=== PATIENT | female | born 1950 | race American Indian/Alaskan Native ===

== ENCOUNTER 2019-06-07 13:07 | Observation (INO) | payer MEDICARE ==
--- NOTE | 2019-06-07 13:34 | Cat Scan Report ---
CT head/brain wo con INDICATION: neuro deficits <6hrs or sx present upon awakening. TECHNIQUE: Routine CT head without contrast. All CT scans at this location are performed using CT dos e reduction for ALARA by means of automated exposure control. COMPARISON: Head CT on 05/25/2016 FINDINGS: BRAIN / INTRACRANIAL CONTENTS: No acute hemorrhage, mass effect, midline shift, or hydrocephalus. No appreciable acute large territorial or lacunar infarct. 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 There are stable mild chronic mi crovascular angiopathic changes in the cerebral white matter. ORBITS: No significant abnormality of visualized orbits. SINUSES / MASTOIDS: No significant abnormality of visualized sinuses and mastoid air cells. ADDITIONAL FINDINGS: None. IMPRESSION: 1. No acute intracranial abnormality. 2. Remote left [employer]ISTANT territory infarct. Findings discussed with emergency department ordering physician at 12:30 PM central time on 06/07/2019 . Signer Name: Jr Rosenberg MD Signed: 06/07/2019 1:30 PM Workstation Name: [email or web address]
[2019-06-07] MEDS ORDERED: LORazepam 2 MG/ML VIAL IV ONE ×2 (13:46→17:28)
[2019-06-07 14:05] LABS: Basophils % (Auto) 1.2 % (0.0-1.8); Hematocrit 35.5 % (30.3-42.9); Hemoglobin 11.8 gm/dl (10.1-14.3); Lymphocytes % (Auto) 33.7 % (13.4-35.0); Mean Corpuscular HGB Conc 33 % (30-34); Mean Corpuscular Volume 90 fl (79-97); Monocytes # (Auto) 0.4 K/mm3 (0.0-0.8); Monocytes % (Auto) 14.4 % (0.0-7.3); Platelet Count 154 K/mm3 (140-440); Red Blood Count 3.96 M/mm3 (3.65-5.03); Red Cell Distribution Width 14.2 % (13.2-15.2)
--- NOTE | 2019-06-07 14:06 | Emergency Department Report ---
HPI - General Chief Complaint: Neuro Symptoms/Deficit Time Seen by Provider: 06/07/19 14:06 - HPI HPI: Pt is a 68 yo [place] Her family went to visit her this AM and initially she was fine. She was talking and her usual self. Her only complaint was intermittent sharp RLE calf pain. The family states she was drinking coffee without difficulty. At approx 1030 the family took her to get breakfast and while at there the pt started to stare off into space. She would not respond. Eventually they were able to get her to get up and she stumbled some to the car. They took her back to her home but she was stumbling and starring off in space so they brought her to ER. No tonic clonic movements. Pos incont. of urine but this may be baseline for pt. Meds are not available but RN has been asked to call pharm for them. PMH epilepsy arthritis asthma CHF dementia HTN bipolar anemia l knee replacement occ. ETOH No hx CVA/ CAD Pt last her normal self at 1030 this AM No known fever or other recent complaints from pt. ED Past Medical Hx - Past Medical History Previous Medical History?: Yes Hx Hypertension: Yes Hx CVA: No Hx Heart Attack/AMI: No Hx Congestive Heart Failure: Yes Hx Diabetes: No Hx Deep Vein Thrombosis: No Hx Pulmonary Embolism: No Hx GERD: No Hx Liver Disease: No Hx Renal Disease: No Hx of Cancer: No Hx Sickle Cell Disease: No Hx Arthritis: Yes Hx Headaches / Migraines: No Hx Seizures: Yes Hx Kidney Stones: No Hx Psychiatric Treatment: Yes (bipolar) Hx Asthma: Yes Hx COPD: No Hx Tuberculosis: No Hx Dementia: Yes Hx HIV: No Additional medical history: anemia - Surgical History Past Surgical History?: Yes Additional Surgical History: left KNEE replacement, right knee replacement - Family History Family history: no significant - Social History Smoking Status: Never Smoker - Medications Home Medications: Home Medications Medication Instructions Recorded Confirmed Last Taken Type levETIRAcetam [Keppra TAB] 1,000 mg PO BID 09/28/13 06/07/19 06/06/19 History Atorvastatin Calcium [Lipitor] 20 mg PO QHS 01/01/15 06/07/19 06/06/19 History Carvedilol [Coreg] 6.25 mg PO BID 01/01/15 06/07/19 06/06/19 History FLUoxetine [PROzac] 20 mg PO QDAY 07/04/15 06/07/19 06/06/19 History Furosemide [Lasix TAB] 40 mg PO 0800,1400 07/04/15 06/07/19 06/06/19 History Acetaminophen 650 mg PO Q6HR PRN 04/28/16 06/07/19 06/06/19 History Lisinopril [Zestril TAB] 10 mg PO QDAY 04/28/16 06/07/19 06/06/19 History Aspirin 325 mg PO QDAY 08/16/16 06/07/19 06/06/19 History Diclofenac Sodium 50 mg PO BID 08/16/16 06/07/19 06/06/19 History Potassium Gluconate 595 mg PO DAILY 08/16/16 06/07/19 06/06/19 History ED Review of Systems ROS: Stated complaint: POSS SEIZURE Other details as noted in HPI Comment: All other systems reviewed and negative Physical Exam - Physical Exam Physical Exam: on initial exam the pt was largely staring off in space with no blink reflex. Then she would come though and follow intermittent simple commands like lifting legs against gravity. No pronator drift. pupils unequal but both react. expressive and receptive aphasia noted. no tonic clonic activity on exam. She appeared to have right side neglect at least intermittently when she would ignore anything going on to the right side of her bed. She would not tell me her name, location or year. NIHSS 7 teleneuro had examined pt prior to my arrival CT neg and ativan given s1s2 lungs cta abd obese snt no jvd no edema of ble pt does smell of old urine pt is bald headed- family states she has no history of cancer/chemo/rad. ED Course - Reevaluation(s) Reevaluation #1: 06/07/19 17:37 neuro has called and reqs. keppra/ativan and admit for further eval including EEG see their note ED Medical Decision Making - Lab Data Result diagrams: 06/08/19 04:39 06/08/19 04:39 - EKG Data EKG shows normal: sinus rhythm Rate: normal - EKG Data When compared to previous EKG there are: no significant change Interpretation: other (qt prolonged) - Radiology Data Radiology results: report reviewed, image reviewed - Medical Decision Making Labs 06/07/19 06/07/19 06/07/19 13:34 13:34 13:34 WBC 3.0 L RBC 3.96 Hgb 11.8 Hct 35.5 MCV 90 MCH 30 MCHC 33 RDW 14.2 Plt Count 154 Lymph % (Auto) 33.7 Knott % (Auto) 14.4 H Eos % (Auto) 1.0 Baso % (Auto) 1.2 Lymph # 1.0 L Knott # 0.4 Eos # 0.0 Baso # 0.0 Seg Neutrophils % 49.7 Seg Neutrophils # 1.5 L PT 15.9 H INR 1.30 H APTT 24.7 Thrombin Time 17.8 Sodium 139 Potassium 3.8 Chloride 98.1 Carbon Dioxide 23 Anion Gap 22 BUN 15 Creatinine 0.9 Estimated GFR > 60 BUN/Creatinine Ratio 17 Glucose 85 Calcium 8.7 Total Bilirubin Direct Bilirubin Indirect Bilirubin AST ALT Alkaline Phosphatase Troponin T < 0.010 Total Protein Albumin Albumin/Globulin Ratio 06/07/19 14:12 WBC RBC Hgb Hct MCV MCH MCHC RDW Plt Count Lymph % (Auto) Knott % (Auto) Eos % (Auto) Baso % (Auto) Lymph # Knott # Eos # Baso # Seg Neutrophils % Seg Neutrophils # PT INR APTT Thrombin Time Sodium Potassium Chloride Carbon Dioxide Anion Gap BUN Creatinine Estimated GFR BUN/Creatinine Ratio Glucose Calcium Total Bilirubin 0.30 Direct Bilirubin < 0.2 Indirect Bilirubin 0.1 AST 63 H ALT 32 Alkaline Phosphatase 69 Troponin T Total Protein 6.4 Albumin 3.9 Albumin/Globulin Ratio 1.6 Vital Signs 06/07/19 06/07/19 06/07/19 13:46 14:00 14:30 Temperature Pulse Rate 90 94 H Respiratory 23 22 14 Rate Blood Pressure 133/87 137/84 Blood Pressure [Left] O2 Sat by Pulse 96 98 96 Oximetry 06/07/19 14:40 Temperature 98.1 F Pulse Rate 96 H Respiratory 14 Rate Blood Pressure Blood Pressure 137/84 [Left] O2 Sat by Pulse 96 Oximetry labs noted QT prolonged will given Mg and follow given concern for sz. will need cardiac monitoring CT noted US LE neg for DVT- obtained due to sharp leg pain reported earlier in the AM pt has been given ativan on arrival with some improvement in her neuro status- following commands more and stating who she is and where she is. 1739 CTA pending UA pending ativan/keppra per neuro Mg 1.8; not recording in lab section; lab notified will admit per neuro req for further evaluation Dr Dorman aware of pt presentation/plan 1830 Dr Miner aware of pt need to admit Family uptdated on plan of care. Admit to [facility] [place]. - Differential Diagnosis ro cva/sz/psychiatric etiology of behavior Critical Care Time: Yes Critical care time in (mins) excluding proc time.: 30 Critical care attestation.: If time is entered above; I have spent that time in minutes in the direct care of this critically ill patient, excluding procedure time. Critical Care Time: due to life threatening nature of pt presentation and concern for CVA- 30 min critical care time spent to assess and stabilize pt. ED Disposition Clinical Impression: Seizure, AMS (altered mental status) Disposition: [id number] OP ADMIT IP TO THIS HOSP Is pt being admited?: Yes Does the pt Need Aspirin: No Condition: Stable Time of Disposition: 17:42
[2019-06-07 14:17] LABS: INR 1.3 (0.87-1.13)
[2019-06-07 14:18] LABS: Partial Thromboplastin Time 24.7 Sec. (24.2-36.6); Thrombin Time 17.8 Sec. (15.1-19.6)
[2019-06-07 14:25] LABS: BUN/Creatinine Ratio 17; Blood Urea Nitrogen 15 mg/dL (7-17); Calcium 8.7 mg/dL (8.4-10.2); Hemolysis Index 6
--- NOTE | 2019-06-07 15:12 | XRay Report ---
CHEST 1 VIEW INDICATION: Weakness. COMPARISON: none FINDINGS: Support devices: None. Heart: Within normal limits. Lungs/Pleura: No acute air space or interstitial disease. Additional findings: None. IMPRESSION: No acute findings. Signer Name: Krzysztof Garcia Jr, MD Signed: 06/07/2019 3:08 PM Workstation Name: [id number]
[2019-06-07 15:27] LABS: Alanine Aminotransferase 32 units/L (7-56); Albumin 3.9 g/dL (3.9-5)
[2019-06-07 15:38] LABS: Bilirubin,Direct < 0.2 mg/dL (0-0.2)
--- NOTE | 2019-06-07 17:07 | Vascular Lab Report ---
DUPLEX DOPPLER LOWER EXTREMITY VEINS, RIGHT INDICATION: Sharp right leg pain.. TECHNIQUE: Duplex doppler imaging was performed through the veins of the right lower extremity using venous comp ression and other maneuvers. COMPARISON: None available. FINDINGS: Common femoral vein: Negative. Superficial femoral vein: Negative. Popliteal vein: Negative. Calf veins: Negative. Additional findings: There is no evidence of a popliteal cyst or other abnormality. IMPRESSION: No sonographic evidence for DVT in the right lower extremity. Signer Name: Jeanmarie Munguia MD Signed: 06/07/2019 5:02 PM Workstation Name: [id number]
--- NOTE | 2019-06-07 17:16 | Emergency Department Report ---
HPI - General Chief Complaint: Neuro Symptoms/Deficit Time Seen by Provider: 06/07/19 14:06 - HPI HPI: [employer] Date of Service: 06/07/2019 13:02:58 History of Present Illness: Patient is a 69 years old Female. Patient was brought by EMS for symptoms of AMS Patient with hx of seizure presents to hospital with ams while out with her family. She had pain in her leg when she woke up but this is not typical of her seizures. She has staring spells with seizures typically but family didn't note any shaking spell however it was noted she had facial twitching in ED. CT head showed no acute hemorrhage or acute core infarct. CT head was reviewed. ED Past Medical Hx - Past Medical History Previous Medical History?: Yes Hx Hypertension: Yes Hx Congestive Heart Failure: Yes Hx Arthritis: Yes Hx Seizures: Yes Hx Psychiatric Treatment: Yes (bipolar) Hx Asthma: Yes Hx Dementia: Yes Additional medical history: anemia - Surgical History Past Surgical History?: Yes Additional Surgical History: left KNEE replacement, right knee replacement - Social History Smoking Status: Never Smoker - Medications Home Medications: Home Medications Medication Instructions Recorded Confirmed Last Taken Type levETIRAcetam [Keppra TAB] 1,000 mg PO BID 09/28/13 06/07/19 06/06/19 History Atorvastatin Calcium [Lipitor] 20 mg PO QHS 01/01/15 06/07/19 06/06/19 History Carvedilol [Coreg] 6.25 mg PO BID 01/01/15 06/07/19 06/06/19 History FLUoxetine [PROzac] 20 mg PO QDAY 07/04/15 06/07/19 06/06/19 History Furosemide [Lasix TAB] 40 mg PO 0800,1400 07/04/15 06/07/19 06/06/19 History Acetaminophen 650 mg PO Q6HR PRN 04/28/16 06/07/19 06/06/19 History Lisinopril [Zestril TAB] 10 mg PO QDAY 04/28/16 06/07/19 06/06/19 History Aspirin 325 mg PO QDAY 08/16/16 06/07/19 06/06/19 History Diclofenac Sodium 50 mg PO BID 08/16/16 06/07/19 06/06/19 History Potassium Gluconate 595 mg PO DAILY 08/16/16 06/07/19 06/06/19 History ED Review of Systems ROS: Stated complaint: POSS SEIZURE Other details as noted in HPI Physical Exam - Physical Exam Vital Signs: Vital Signs 06/07/19 06/07/19 06/07/19 13:46 14:00 14:30 Temperature Pulse Rate 90 94 H Respiratory 23 22 14 Rate Blood Pressure 133/87 137/84 Blood Pressure [Left] O2 Sat by Pulse 96 98 96 Oximetry 06/07/19 14:40 Temperature 98.1 F Pulse Rate 96 H Respiratory 14 Rate Blood Pressure Blood Pressure 137/84 [Left] O2 Sat by Pulse 96 Oximetry General: Examination: 1A: Level of Consciousness - Alert; keenly responsive + 0 1B: Ask Month and Age - Could Not Answer Either Question Correctly + 2 1C: Blink Eyes & Squeeze Hands - Performs 0 Tasks + 2 2: Test Horizontal Extraocular Movements - Normal + 0 3: Test Visual Forrester - No Visual Loss + 0 4: Test Facial Palsy (Use Grimace if Obtunded) - Normal symmetry + 0 5A: Test Left Arm Motor Drift - No Drift for 10 Seconds + 0 5B: Test Right Arm Motor Drift - No Drift for 10 Seconds + 0 6A: Test Left Leg Motor Drift - No Drift for 5 Seconds + 0 6B: Test Right Leg Motor Drift - No Drift for 5 Seconds + 0 7: Test Limb Ataxia (FNF/Heel-Travis) - No Ataxia + 0 8: Test Sensation - Normal; No sensory loss + 0 9: Test Language/Aphasia - Mute/Global Aphasia: No Usable Speech/Auditory Comprehension + 3 10: Test Dysarthria - Normal + 0 11: Test Extinction/Inattention - No abnormality + 0 NIHSS Score: 7 ED Course Vital Signs 06/07/19 06/07/19 06/07/19 13:46 14:00 14:30 Temperature Pulse Rate 90 94 H Respiratory 23 22 14 Rate Blood Pressure 133/87 137/84 Blood Pressure [Left] O2 Sat by Pulse 96 98 96 Oximetry 06/07/19 14:40 Temperature 98.1 F Pulse Rate 96 H Respiratory 14 Rate Blood Pressure Blood Pressure 137/84 [Left] O2 Sat by Pulse 96 Oximetry ED Medical Decision Making - Lab Data Result diagrams: 06/07/19 13:34 06/07/19 13:34 - Medical Decision Making Impression: Concern for seizures with post ictal state RO Acute Ischemic Stroke Metrics: Last Known Well: 06/07/2019 11:00:00 [employer] Notification Time: 06/07/2019 13:02:06 Arrival Time: 06/07/2019 13:08:00 Stamp Time: 06/07/2019 13:02:58 Time First Login Attempt: 06/07/2019 13:15:00 Video Start Time: 06/07/2019 13:15:00 Symptoms: AMS NIHSS Start Assessment Time: 06/07/2019 13:22:00 Patient is not a candidate for tPA. Patient was not deemed candidate for tPA thrombolytics because of exam is non localizing and concern for seizures, not likely iv tpa candidate as sxs are similar to seizures per family.. Video End Time: 06/07/2019 13:25:00 CT head showed no acute hemorrhage or acute core infarct. CT head was reviewed. Advanced imaging CTA head and neck obtained. ER physician notified of the decision on thrombolytics management. Our recommendations are outlined below. Recommendations: Antiplatelet Therapy Recommended recommend dose of ativan, per d/w nurse patient with improvement after receiving dose recommend load of keppra as patient is on recommend checking CTA if negative will need keppra and EEG on admission. consider inpatient neurology follow up. In d/w ED MD patient has fluctuated with her confusion at times speaking and at times nonverbal. Recommended Scan: MRI Head Therapies: Physical Therapy, Occupational Therapy, Speech Therapy Assessment When Applicable DVT prophylaxis: Choice of Primary Team Sign Out: Discussed with Emergency Department Provider Patient was informed the Neurology Consult would happen via TeleHealth consult by way of interactive audio and video telecommunications and consented to receiving care in this manner. Due to the immediate potential for life-threatening deterioration due to underlying acute neurologic illness, I spent 35 minutes providing critical care. This time includes time for face to face visit via telemedicine, review of medical records, imaging studies and discussion of findings with providers, the patient and/or family. Dr Gumaro Summers [facility] Critical care attestation.: If time is entered above; I have spent that time in minutes in the direct care of this critically ill patient, excluding procedure time. ED Disposition Clinical Impression: Seizure Disposition: DC-09 OP ADMIT IP TO THIS HOSP Is pt being admited?: Yes Condition: Stable Referrals: PRIMARY CARE,MD [Primary Care Provider] - 3-5 Days
[2019-06-07] MEDS ORDERED: levETIRAcetam 1000 MG/NS 0.75% 1,000 MG/100 ML BAG IV ONE ×2 (17:21→19:39)
[2019-06-07] MEDS ORDERED: MAGNESIUM SULFATE 2 GM/50 ML BAG IV ONE ×2 (17:38→20:51)
--- NOTE | 2019-06-07 18:01 | Cat Scan Report ---
CTA head with intravenous contrast CLINICAL HISTORY: Altered mental status. History of prior CVA. History of seizure. TECHNIQUE: 0.625 mm thick contiguous axial scans were obtained from the skull base to the skull vertex during ra pid bolus administration of intravenous contrast material. Multiplanar reconstructions were produced in the coronal and sagittal planes. In addition 3 plane MIP instructions were produced and reviewed f or this report. The axial source images and reconstructed images were reviewed for this report. All CT scans at this location are performed using CT dose reduction for [employer] by means of automated e xposure control. FINDINGS: The caliber of the intracranial vessels is normal throughout. There is no indication of intracranial stenosis or large vessel occlusion. There is no indication of vasculitis. There is no evidence of aneurysm or other vascular malformation. Dural venous sinuses are well opacified. There is no indication of dural sinus thrombosis. Note is made of an area of encephalomalacia involving the medial aspect of the left occipital lobe un changed from prior studies. IMPRESSION: No vascular abnormalities are identified on CTA head. CONTRAST DOSE REPORT: Omnipaque 350: 100 ml administered intravenously. Signer Name: Jose Pardo MD Signed: 06/07/2019 5:57 PM Workstation Name: [id number]
--- NOTE | 2019-06-07 18:11 | Cat Scan Report ---
CTA neck without and with intravenous contrast material, with multiplanar reconstruction and with thr ee-dimensional reconstructions produced utilizing an independent workstation. CLINICAL HISTORY: Altered mental status. History of CVA. History of seizure. TECHNIQUE: Following acquisition of a timing bolus 0.63 mm thick contiguous axial scans were obtained from aorti c arch to the skull base during rapid bolus intravenous contrast infusion. In addition to evaluation of axial source images multiplanar reconstructions were produced and reviewed for this report. Three- dimensional reconstructions were produced utilizing an independent workstation. These were also revie wed for this report. FINDINGS: Limitations: Patient was unable to tolerate conventional positioning was scanned in the oblique orien tation. This is a limiting factor on this study. Rask aorta: No abnormalities are seen on evaluation of the thoracic aorta. The origins of the great v essels are free from atherosclerotic disease. There is moderate tortuosity of the brachiocephalic art zaid. Right subclavian artery has a normal appearance. No abnormalities are seen at the origin of the left subclavian artery. Right carotid artery: Right common carotid artery has an unremarkable appearance. Evaluation of the r ight carotid bifurcation is remarkable for the presence of calcified atherosclerotic plaque along the anterior margin of the carotid bulb and the posterior margin of the proximal right internal carotid artery. There is no associated stenosis. Cervical segments of the right internal carotid artery have an unremarkable appearance. Left carotid artery: Left common carotid artery is tortuous proximally but has a normal caliber throu ghout. There is no indication of atherosclerotic disease along the course of the left common carotid artery or at the left carotid bifurcation. There is moderate tortuosity of the cervical portions of t he LICA. There is no indication of atherosclerotic disease. The left vertebral artery is dominant. No indication of atherosclerotic disease is seen along the cou rse of the vertebral arteries. Both vertebral arteries contribute to the basilar artery origin. The degree of stenosis, if any, is determined utilizing NASCET like criteria. In this case there is no indication of hemodynamically significant stenosis. Evaluation of the airway reveals asymmetry of the piriform sinuses with effacement of the left pirifo rm sinus compared to the right. Indirect or direct laryngoscopy is suggested to exclude the presence of a mucosal lesion in the left piriform sinus. No additional abnormalities are seen along the course of the airway. There is no indication of cervical lymphadenopathy. Visualized portions of the paroti d glands and the submandibular salivary glands have a normal appearance. Thyroid gland has a normal a ppearance. Evaluation of the lung apices reveals no evidence of lung nodule or infiltrate. Evaluation of the cervical spine is remarkable for widespread cervical spondylosis. There is no indication of c entral canal stenosis. IMPRESSION: 1. No indication of hemodynamically significant stenosis at the carotid bifurcations or elsewhere. Contrast dose report: Omnipaque 350: 100 ml, administered intravenously All CT examinations performed at this facility utilize modulated dose reduction, iterative reconstruc tion or weight-based dosing, as appropriate, to obtain a radiation dose which is as low as can reason ably be achieved. Signer Name: Jose Pardo MD Signed: 06/07/2019 6:06 PM Workstation Name: [id number]
[2019-06-07] MEDS ORDERED: LORazepam 2 MG/ML VIAL ONE (20:52)
--- NOTE | 2019-06-07 22:36 | History and Physical Report ---
History of Present Illness Date of examination: 06/07/19 History of present illness: 68-year-old woman with a history of hypertension, seizure was brought to the emergency room for evaluation. A spouse at bedside state that at around 1145 day 1 for lunch, she sat down and then she became confused and aphasic and her whole body was weak. In the emergency room she was given Ativan, Keppra eview Of Systems: Constitutional: no weight loss, fever, chills Ears, eyes, nose, mouth and throat: no nasal congestion, no nasal discharge, no sinus pressure, blurry vision, diplopia Neck: No neck pain or rigidity. Cardiovascular: No palpitations, chest pain Respiratory: No shortness of breath, cough Gastrointestinal: No hematochezia, abdominal pain Genitourinary : no dysuria, frequency , hematuria Musculoskeletal: no muscle ache , joint pain Integumentary: no rash, no pruritis Neurological: no parathesias, focal weakness Endocrine: no cold or heat intolerance, no polyuria or polydipsia Hematologic/Lymphatic: no easy bruising, no easy bleeding, no gland swelling Allergic/Immunologic: no urticaria, no angioedema. PAST MEDICAL HISTORY:hypertension, seizure PAST SURGICAL HISTORY: Knee, hip FAMILY HISTORY:hypertension, diabetes SOCIAL HISTORY: Denies tobacco, drugs, alcohol Medications and Allergies Allergies Allergy/AdvReac Type Severity Reaction Status Date / Time No Known Allergies Allergy Verified 05/25/16 13:49 Home Medications Medication Instructions Recorded Confirmed Last Taken Type levETIRAcetam [Keppra TAB] 1,000 mg PO BID 09/28/13 06/07/19 06/06/19 History Atorvastatin Calcium [Lipitor] 20 mg PO QHS 01/01/15 06/07/19 06/06/19 History Carvedilol [Coreg] 6.25 mg PO BID 01/01/15 06/07/19 06/06/19 History FLUoxetine [PROzac] 20 mg PO QDAY 07/04/15 06/07/19 06/06/19 History Furosemide [Lasix TAB] 40 mg PO 0800,1400 07/04/15 06/07/19 06/06/19 History Acetaminophen 650 mg PO Q6HR PRN 04/28/16 06/07/19 06/06/19 History Lisinopril [Zestril TAB] 10 mg PO QDAY 04/28/16 06/07/19 06/06/19 History Aspirin 325 mg PO QDAY 08/16/16 06/07/19 06/06/19 History Diclofenac Sodium 50 mg PO BID 08/16/16 06/07/19 06/06/19 History Potassium Gluconate 595 mg PO DAILY 08/16/16 06/07/19 06/06/19 History Exam - Physical Exam Narrative exam: General Apperance: The patient sitting in bed no acute distress HEENT: Normocephalic, atraumatic. Pupils equally round and reactive to light, extraocular movement intact, and no sclericterus or JVD or thyromegaly or nodule. Neck supple, no carotid bruit, mucous membranes moist, no exudate or erythema Heart: S1-S2, regular is rhythm Lungs: Clear to auscultation bilaterally, breathing comfortable Abdomen: Positive bowel sounds, soft, nontender, nondistended, no organomegaly Extremities: No edema cyanosis clubbing Skin: no rash, nodule, warm and dry Neuro:CN 2 -12 intact, motor/sensory intact, speech is fluent - Constitutional Vitals: Temp Pulse Resp BP Pulse Ox 98.1 F 93 H 15 148/90 98 06/07/19 14:40 06/07/19 16:00 06/07/19 16:00 06/07/19 18:00 06/07/19 18:00 Results - Labs CBC & Chem 7: 06/07/19 13:34 06/07/19 13:34 Labs: Abnormal lab results 06/07/19 06/07/19 06/07/19 Range/Units 13:34 13:34 14:12 WBC 3.0 L (4.5-11.0) K/mm3 [place] % (Auto) 14.4 H (0.0-7.3) % Lymph # 1.0 L (1.2-5.4) K/mm3 Seg Neutrophils # 1.5 L (1.8-7.7) K/mm3 PT 15.9 H (12.2-14.9) Sec. INR 1.30 H (0.87-1.13) AST 63 H (5-40) units/L - Imaging and Cardiology CT Scan - head: report reviewed Assessment and Plan CTA head and neck reviewed Assessment CVA versus seizure Hypertension History of seizure Plan Admit to medicine To MRI of the head, echo Neurochecks, consult neurology, PT, OT Start aspirin, statin, DVT prophylaxis
[2019-06-08] MEDS ORDERED: ACETAMINOPHEN 325 MG TAB PO PRN (00:50)
[2019-06-08] MEDS ORDERED: ONDANSETRON 4 MG/2 ML INJ IV PRN (00:50)
[2019-06-08] MEDS ORDERED: MAGNESIUM HYDROXIDE (MOM) ORAL LIQD UDC PO PRN (00:50)
[2019-06-08] MEDS ORDERED: hydrALAZINE 20 MG/1 ML INJ IV PRN (00:53)
[2019-06-08 05:20] LABS: Basophils % (Auto) 0.2 % (0.0-1.8); Eosinophils % (Auto) 0.5 % (0.0-4.3); Hematocrit 32.5 % (30.3-42.9); Hemoglobin 10.8 gm/dl (10.1-14.3); Lymphocytes # (Auto) 0.9 K/mm3 (1.2-5.4); Lymphocytes % (Auto) 29.8 % (13.4-35.0); Mean Corpuscular HGB Conc 33 % (30-34); Mean Corpuscular Volume 90 fl (79-97); Monocytes # (Auto) 0.4 K/mm3 (0.0-0.8); Platelet Count 128 K/mm3 (140-440); Red Blood Count 3.62 M/mm3 (3.65-5.03); Red Cell Distribution Width 13.8 % (13.2-15.2)
[2019-06-08 05:36] LABS: BUN/Creatinine Ratio 11; Blood Urea Nitrogen 10 mg/dL (7-17); Calcium 8.5 mg/dL (8.4-10.2); Hemolysis Index 1
[2019-06-08] MEDS ORDERED: POTASSIUM CHLORIDE ER 20 MEQ TAB PO ONE (09:00)
[2019-06-08] MEDS: ASPIRIN 325 MG TAB PO SCH (09:09)
[2019-06-08] MEDS: ENOXAPARIN 40 MG/0.4 ML INJ SUB-Q SCH (09:13)
[2019-06-08] MEDS ORDERED: ENOXAPARIN 30 MG/0.3 ML INJ SUB-Q SCH (10:00)
--- NOTE | 2019-06-08 12:04 | Consultation ---
Medications and Allergies Allergies Allergy/AdvReac Type Severity Reaction Status Date / Time No Known Allergies Allergy Verified 05/25/16 13:49 Home Medications Medication Instructions Recorded Confirmed Last Taken Type levETIRAcetam [Keppra TAB] 1,000 mg PO BID 09/28/13 06/07/19 06/06/19 History Atorvastatin Calcium [Lipitor] 20 mg PO QHS 01/01/15 06/07/19 06/06/19 History Carvedilol [Coreg] 6.25 mg PO BID 01/01/15 06/07/19 06/06/19 History FLUoxetine [PROzac] 20 mg PO QDAY 07/04/15 06/07/19 06/06/19 History Furosemide [Lasix TAB] 40 mg PO 0800,1400 07/04/15 06/07/19 06/06/19 History Acetaminophen 650 mg PO Q6HR PRN 04/28/16 06/07/19 06/06/19 History Lisinopril [Zestril TAB] 10 mg PO QDAY 04/28/16 06/07/19 06/06/19 History Aspirin 325 mg PO QDAY 08/16/16 06/07/19 06/06/19 History Diclofenac Sodium 50 mg PO BID 08/16/16 06/07/19 06/06/19 History Potassium Gluconate 595 mg PO DAILY 08/16/16 06/07/19 06/06/19 History Active Meds: Active Medications Acetaminophen (Tylenol) 650 mg PO Q4H PRN PRN Reason: Pain, Mild (1-3) Aspirin (Aspirin) 325 mg PO QDAY [facility] Last Admin: 06/08/19 09:09 Dose: 325 mg Documented by: Atorvastatin Calcium (Lipitor) 40 mg PO QHS [facility] Bisacodyl (Dulcolax) 10 mg [place] QDAY PRN PRN Reason: Constipation Enoxaparin Sodium (Lovenox) 40 mg SUB-Q QDAY@1000 [facility] Last Admin: 06/08/19 09:13 Dose: 40 mg Documented by: Hydralazine HCl (Apresoline) 5 mg IV Q6H PRN PRN Reason: Hypertension Magnesium Hydroxide (Milk Of Magnesia) 30 ml PO Q4H PRN PRN Reason: Constipation Ondansetron HCl (Zofran) 4 mg IV Q8H PRN PRN Reason: Nausea And Vomiting Sodium Chloride (Sodium Chloride Flush Syringe 10 Ml) 10 ml IV PRN PRN PRN Reason: LINE FLUSH Physical Examination - Vital Signs Vital Signs: Vital Signs Pulse Resp BP Pulse Ox 90 23 133/87 96 06/07/19 13:46 06/07/19 13:46 06/07/19 13:46 06/07/19 13:46 Results - Laboratory Findings CBC and BMP: 06/08/19 04:39 06/08/19 04:39 Abnormal Lab Findings: Abnormal Labs 06/07/19 06/07/19 06/07/19 13:34 13:34 14:12 WBC 3.[address]t Count [address] % (Auto) 14.4 H Lymph # 1.0 L Seg Neutrophils # 1.5 L PT 15.9 H INR 1.30 H Sodium Potassium Glucose POC Glucose Phosphorus AST 63 H 06/07/19 06/08/19 06/08/19 23:29 04:39 04:39 WBC 2.9 L RBC 3.62 L Plt Count [address] % (Auto) 14.0 H Lymph # 0.9 L Seg Neutrophils # 1.6 L PT INR Sodium 136 L Potassium 3.1 L Glucose 140 H POC Glucose 124 H Phosphorus 1.90 L AST Assessment and Plan 68 YR OLD FEMALE WITH HISTORY OF HYPERTENSION,SEIZURE DISORDER WHO IS ON KEPPRA 1000MG BID WITH GOOD CONTROL OF SEIZURE DEVELOPED AN EPISODE OF CONFUSION ON 06/07/2019 WHILE EATING BREAKFAST IN A RESTURANT AT AROUND 10.30AM. 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 PATIENT WAS NOT ON ASPIRIN AND STATIN PRIOR TO COMING TO THE HOSPITAL,DID NOT HAVE ANY RECURRENCE OF STROKE AFTER ADMISSION. PHYSICAL EXAMINATION ALERT AND APPROPRIATE. NORMAL MENTAL STATUS. HEART-NORMAL RATE AND RYTHM, CAROTIDS-BOTH PALPABLE CRANIAL NERVES -ALL WITH IN NORMAL LIMIT MOTOR- NO ASYMMETRY OF STRENGTH COORDINATION-NORMAL REFLEXES- ALL REFLEXES ARE WITH IN NORMAL LIMIT SENSORY EXAMINATION IS GROSSLY WITH IN NORMAL LIMIT, IMPRESSION 1. RECURRENCE OF SEIZURE WHILE ON KEPPRA 1000MG BID,SEIZURE WAS PROBABLY PRECIPITATED BY SKIPPING MEAL. 2. OLD STROKE RECOMMEND. 1. PLEASE ADD GABAPENTINE 400MG AT NIGHT IN ADDITION TO KEPPRA 2. INITIATE ASPIRIN 81MG QD AND STATIN, LIPITOR 20MG MAY INCREASE IF NEEDED AFTER LIPID PROFILE FINDINGS 3, INITIATE STROKE WORK UP INCLUDING CTA OF NECK,LIPID PROFILE,T4,TSH 2D ECHO.
--- NOTE | 2019-06-08 13:47 | Magnetic Resonance Report ---
All MRI BRAIN WITHOUT CONTRAST INDICATION / CLINICAL INFORMATION: stroke. TECHNIQUE: Multiplanar, multisequence MR images of the brain were obtained. COMPARISON: No previous MRI exams available for comparison. FINDINGS: BRAIN / INTRACRANIAL CONTENTS: There is an old infarct involving left occipital and posterior tempora l lobes with encephalomalacia. The motion degrades image quality. However, there is otherwise extensi ve cerebral white matter disease most consistent with microvascular angiopathy. The diffusion imaging reveals no evidence of acute infarction. There is mild cerebral atrophy. This mild ex vacuo dilatation of the occipital pole of the left later al ventricle. Otherwise, the ventricular system is unremarkable. No extra-axial fluid collections are identified. CRANIOCERVICAL JUNCTION: No significant abnormality. VASCULAR FLOW-VOIDS: The vertebral basilar system and distal internal carotid arteries grossly demons trate appropriate signal voids. ORBITS: The orbits are obscured by the degree of motion. SINUSES / MASTOIDS: No significant abnormality of the visualized paranasal sinuses or mastoid air martin ls. ADDITIONAL FINDINGS: None. IMPRESSION: 1. There is extensive microvascular angiopathy as well as old infarct involving left temporal occipit al region. There is no evidence of recent infarction. Signer Name: Bradley Naranjo MD Signed: 06/08/2019 1:42 PM Workstation Name: [id number]
--- NOTE | 2019-06-08 16:10 | Progress Note ---
Assessment and Plan Presyncope Vs breakthrough seizure - acute stroke ruled out by negative CT/MRI - cont AED, follow clinically - consulted cardiology Hypertension, cont home meds CHFrEf 35% - no sign of exacerbation, cont home meds Hypokalamia, replete DVT prophylaxis, SCD Disposition: pending cardiology recommendation Brief History: 68-year-old woman with a history of hypertension, seizure was brought to the emergency room for evaluation. A spouse at bedside state that at around 1145 day 1 for lunch, she sat down and then she became confused and aphasic and her whole body was weak. In the emergency room she was given Ativan, Keppra Radiological data: CT head: no new infract MRI brain: 1. There is extensive microvascular angiopathy as well as old infarct involving left temporal occipital region. There is no evidence of recent infarction. Head/neck CTA: 1. No indication of hemodynamically significant stenosis at the carotid bifurcations or elsewhere. 2d echo Ef - 35% Hospitalist Physical exam: GENERAL: elderly AAF lying on bed appeared to be in no discomfort. HEENT: Normocephalic. Atraumatic. No conjunctival congestion or icterus. Patient has moist mucous membranes. NECK: Supple. Trachea midline. CHEST/LUNGS: Clear to auscultated bilaterally, breathing nonlabored. No wheezes crackles or rhonchi. HEART/CARDIOVASCULAR: Regular in rate and rhythm. S1 and S2 positive. ABDOMEN: Abdomen is soft, nontender. Patient has normal bowel sounds. SKIN: There is no rash. Warm and dry. NEURO: No focal motor deficit. Follows command. MUSCULOSKELETAL: No joint effusion or tenderness. EXTRIMITY: No edema, no cyanosis or clubbing. PSYCH: Cooperative. Subjective Date of service: 06/08/19 Interval history: Patient seen and examined. Medical records and medication list reviewed. No acute event overnight noted by the RN. Patient denies any chest pain or difficulty breathing. Patient is tolerating diet. Discussed plan of care at bedside with patient. Objective - Constitutional Vitals: Vital Signs - 12hr 06/08/19 06/08/19 07:33 09:14 Temperature 97.5 F L Pulse Rate 89 Respiratory 18 Rate Blood Pressure 119/70 - Labs CBC & Chem 7: 06/08/19 04:39 06/08/19 04:39 Labs: Abnormal lab results 06/07/19 06/08/19 06/08/19 Range/Units 23:29 04:39 04:39 WBC 2.9 L (4.5-11.0) K/mm3 RBC 3.62 L (3.65-5.03) M/mm3 Plt Count 128 L (140-440) K/mm3 [place] % (Auto) 14.0 H (0.0-7.3) % Lymph # 0.9 L (1.2-5.4) K/mm3 Seg Neutrophils # 1.6 L (1.8-7.7) K/mm3 Sodium 136 L (137-145) mmol/L Potassium 3.1 L (3.6-5.0) mmol/L Glucose 140 H (65-100) mg/dL POC Glucose 124 H (70-105) Phosphorus 1.90 L (2.5-4.5) mg/dL
[2019-06-08 17:20] LABS: Bilirubin,Urine NEG (Negative); Blood,Urine SM (Negative); Color,Urine Yellow (Yellow); Protein,Urine <15 mg/dL mg/dL (Negative); RBC,Urine < 1.0 /HPF (0.0-6.0); Urobilinogen,Urine < 2.0 mg/dL (<2.0); WBC,Urine < 1.0 /HPF (0.0-6.0)
[2019-06-08] MEDS: GABAPENTIN 300 MG CAP PO SCH (18:25)
[2019-06-09 06:08] LABS: BUN/Creatinine Ratio 14; Blood Urea Nitrogen 10 mg/dL (7-17); Calcium 8.4 mg/dL (8.4-10.2); Chol/HDL Ratio 1.51 %; HDL Cholesterol 111 mg/dL (40-59); Hemolysis Index 0; LDL Cholesterol,Direct 49 mg/dL (50-130)
--- NOTE | 2019-06-09 09:23 | Consultation ---
History of Present Illness Consult date: 06/09/19 Consult reason: other (Seizure disorder) History of present illness: 68 year old female presenting after a period of unresponsiveness at home. Ac cording to her significant other, she had a period of absence, while she was staring at him but unresponsive. She did not lose consciousness or sustained flaccid paralysis during the episode. She was sitting at that time. Patient does have a history of seizures in the past. She follows with an outside wheel polisher regarding her cardiomyopathy - she was not able to remember the name of her wheel polisher Past History Past Medical History: heart failure, hypertension, other (seizure) Past Surgical History: Other (Knee and hip surgeries) Social history: no significant social history Family history: diabetes, hypertension Medications and Allergies Allergies Allergy/AdvReac Type Severity Reaction Status Date / Time No Known Allergies Allergy Verified 05/25/16 13:49 Home Medications Medication Instructions Recorded Confirmed Last Taken Type levETIRAcetam [Keppra TAB] 1,000 mg PO BID 09/28/13 06/07/19 06/06/19 History Atorvastatin Calcium [Lipitor] 20 mg PO QHS 01/01/15 06/07/19 06/06/19 History Carvedilol [Coreg] 6.25 mg PO BID 01/01/15 06/07/19 06/06/19 History FLUoxetine [PROzac] 20 mg PO QDAY 07/04/15 06/07/19 06/06/19 History Furosemide [Lasix TAB] 40 mg PO 0800,1400 07/04/15 06/07/19 06/06/19 History Acetaminophen 650 mg PO Q6HR PRN 04/28/16 06/07/19 06/06/19 History Lisinopril [Zestril TAB] 10 mg PO QDAY 04/28/16 06/07/19 06/06/19 History Aspirin 325 mg PO QDAY 08/16/16 06/07/19 06/06/19 History Diclofenac Sodium 50 mg PO BID 08/16/16 06/07/19 06/06/19 History Potassium Gluconate 595 mg PO DAILY 08/16/16 06/07/19 06/06/19 History Active Meds: Active Medications Acetaminophen (Tylenol) 650 mg PO Q4H PRN PRN Reason: Pain, Mild (1-3) Aspirin (Aspirin) 325 mg PO QDAY [facility] Last Admin: 06/08/19 09:09 Dose: 325 mg Documented by: Atorvastatin Calcium (Lipitor) 40 mg PO QHS [facility] Last Admin: 06/08/19 21:57 Dose: 40 mg Documented by: Bisacodyl (Dulcolax) 10 mg [place] QDAY PRN PRN Reason: Constipation Enoxaparin Sodium (Lovenox) 40 mg SUB-Q QDAY@1000 [facility] Last Admin: 06/08/19 09:13 Dose: 40 mg Documented by: Fluoxetine HCl (Prozac) 20 mg PO QDAY [facility] Furosemide (Lasix) 40 mg PO 0800,1400 [facility] Gabapentin (Neurontin) 300 mg PO QPM [facility] Last Admin: 06/08/19 18:25 Dose: 300 mg Documented by: Hydralazine HCl (Apresoline) 5 mg IV Q6H PRN PRN Reason: Hypertension Levetiracetam (Keppra) 1,000 mg PO BID [facility] Lisinopril (Zestril) 10 mg PO QDAY [facility] Magnesium Hydroxide (Milk Of Magnesia) 30 ml PO Q4H PRN PRN Reason: Constipation Ondansetron HCl (Zofran) 4 mg IV Q8H PRN PRN Reason: Nausea And Vomiting Sodium Chloride (Sodium Chloride Flush Syringe 10 Ml) 10 ml IV PRN PRN PRN Reason: LINE FLUSH Review of Systems All systems: negative Physical Examination Vital Signs Pulse Resp BP Pulse Ox 90 23 133/87 96 06/07/19 13:46 06/07/19 13:46 06/07/19 13:46 06/07/19 13:46 General appearance: no acute distress HEENT: Positive: PERRL Neck: Positive: neck supple Cardiac: Positive: Reg Rate and Rhythm Lungs: Positive: Normal Exam Neuro: Positive: Grossly Intact Abdomen: Positive: Soft Extremities: Present: normal Results 06/08/19 04:39 06/09/19 04:34 Lipids 06/09/19 Range/Units 04:34 Triglycerides 49 (2-149) mg/dL Cholesterol 168 (50-199) mg/dL HDL Cholesterol 111 H (40-59) mg/dL Cholesterol/HDL Ratio 1.51 % Comprehensive Metabolic Panel 06/09/19 Range/Units 04:34 Sodium 142 (137-145) mmol/L Potassium 3.6 (3.6-5.0) mmol/L Chloride 104.9 (98-107) mmol/L Carbon Dioxide 26 (22-30) mmol/L BUN 10 (7-17) mg/dL Creatinine 0.7 (0.7-1.2) mg/dL Glucose 105 H (65-100) mg/dL Calcium 8.4 (8.4-10.2) mg/dL - EKG Interpretation EKG: sinus rhythm EKG interpretations - Telemetry EKG Rhythm: Sinus Rhythm Assessment and Plan Seizure disorder No clinical evidence of cardiac syncope History is not consistent with cardiac syncope No arrhythmias recorded on tele History of non-ischemic cardiomyopathy, LVEF 35% by echo this admission Abnormal ECG showing prolonged QT and Q waves in V1 through V3 that were present on previous ECGs done in 2016 Essential hypertension Recommendations: Resume low dose coreg No further cardiac work-up is needed Patient will follow-up with her outpatient wheel polisher
[2019-06-09] MEDS: FUROSEMIDE 40 MG TAB PO SCH ×2 (09:42→17:52)
[2019-06-09 09:43] VITALS: BP 147/101
[2019-06-09] MEDS: ASPIRIN 325 MG TAB PO SCH (09:43)
[2019-06-09] MEDS: ENOXAPARIN 40 MG/0.4 ML INJ SUB-Q SCH (09:43)
[2019-06-09] MEDS ORDERED: LISINOPRIL 10 MG TAB PO SCH (10:00)
[2019-06-09] MEDS ORDERED: FLUoxetine 20 MG CAP PO SCH (10:00)
[2019-06-09] MEDS ORDERED: levETIRAcetam 500 MG TAB PO SCH (10:00)
[2019-06-09] MEDS ORDERED: carvediloL 3.125 MG TAB PO SCH (10:00)
--- NOTE | 2019-06-09 14:46 | Discharge Summary ---
Providers - Providers Date of Admission: 06/07/19 22:34 Date of discharge: 06/09/19 Attending physician: MARCELINO BRAR 06/08/19 Consult to Physician [CONS] Routine Comment: Consulting Provider: DANIELLA CLEVELAND Physician Instructions: Reason For Exam: cva 06/08/19 00:51 Occupational Therapy Evaluate and Treat [CONS] Routine Comment: Reason For Exam: Neuro deficits Physical Therapy Evaluation and Treat [CONS] Routine Comment: Reason For Exam: Neuro deficits 06/08/19 16:10 Consult to Physician [CONS] Routine Comment: Consulting Provider: CHEO CARDENAS Physician Instructions: Reason For Exam: new onset CHF with presyncope/seizure Primary care physician: [facility] Hospitalization Reason for admission: Near syncope/seizure like activity Condition: Stable Pertinent studies: CT head: no new infract MRI brain:There is extensive microvascular angiopathy as well as old infarct involving left temporal occipital region. There is no evidence of recent infarction. Head/neck CTA: 1. No indication of hemodynamically significant stenosis at the carotid bifurcations or elsewhere. 2d echo Ef - 35% Right lower extremity venous Doppler; negative for DVT CX-ray; normal study Hospital course: 68-year-old woman with a history of hypertension, seizure was brought to the emergency room for evaluation. A spouse at bedside state that at around 1145 day 1 for lunch, she sat down and then she became confused and aphasic and her whole body was weak. In the emergency room she was given Ativan, Keppra. Placed on antiepileptic meds,evaluted by neurology. Had extensive neuro w/u as mentioned below, Patient advised not to drive till cleared by neuro/PMD. Today pt is comfotrtable,no new complaints Vital signs stable,Physical exam unremarkable. Stable at discharge.Ceared by neuro and cardiology. Stable at discharge Discharge Diagnosis: --Presyncope Vs breakthrough seizure acute stroke ruled out by negative CT/MRI cont AED, follow clinically consulted cardiology --Hypertension, cont home meds --CHFrEf 35%/Chronic systolic CHF -no sign of exacerbation, cont home meds --Hypokalamia, replete --DVT prophylaxis, SCD Stable at discharge Disposition: [id number] HOME [facility] Time spent for discharge: 32 min Core Measure Documentation - Palliative Care Palliative Care/ Comfort Measures: Not Applicable - Core Measures Any of the following diagnoses?: none Exam - Constitutional Vitals: Temp Pulse Resp BP Pulse Ox 97.5 F L 112 H 18 147/101 99 06/09/19 09:39 06/09/19 09:39 06/09/19 09:39 06/09/19 09:42 06/09/19 09:39 General appearance: Present: no acute distress, well-nourished - EENT Eyes: Present: PERRL, EOM intact - Neck Neck: Present: supple, normal ROM - Respiratory Respiratory effort: normal Respiratory: bilateral: diminished, negative: rales, rhonchi, wheezing - Cardiovascular Rhythm: regular Heart Sounds: Present: S1 & S2 - Extremities Extremities: no ischemia, No edema - Abdominal General gastrointestinal: Present: soft, non-tender, non-distended, normal bowel sounds - Integumentary Integumentary: Present: clear, warm - Musculoskeletal Musculoskeletal: generalized weakness (residual weakness) - Psychiatric Psychiatric: appropriate mood/affect, cooperative - Neurologic Neurologic: other (residual weakness) Plan Activity: advance as tolerated, no driving until cleared by PCP, fall precautions Diet: other (cardiac diet) Special Instructions: physical therapy (home physical therapy) Additional Instructions: Do not drive until cleared by primary care physician/neurologist. Fall Precautions Follow up with: PRIMARY CARE, [Primary Care Provider] - 3-5 Days LIZZETTE RODRIGUEZ MD [Staff Physician] - 7 Days Forms: Accompanied Note Prescriptions: Carvedilol [Coreg] 3.125 mg PO BID #60 tablet Gabapentin 300 mg PO QPM #30 capsule
[2019-06-09] MEDS: GABAPENTIN 300 MG CAP PO SCH (17:52)
== END 2019-06-09 17:00 | disposition home health service (06) ==
LOC: ED 13:07 → 4A 22:34 → INTOOBSV 22:34
PROVIDERS: ADMIT Internal Medicine; ATTEND Internal Medicine
DX: R41.0 Disorientation, unspecified (principal); I63.9 Cerebral infarction, unspecified; I11.0 Hypertensive heart disease with heart failure; I50.9 Heart failure, unspecified; M19.90 Unspecified osteoarthritis, unspecified site; J45.909 Unspecified asthma, uncomplicated; F31.9 Bipolar disorder, unspecified; F02.80 Dementia in other diseases classified elsewhere, unspecified severity, without behavioral disturbance, psychotic disturbance, mood disturbance, and anxiety; Z96.651 Presence of right artificial knee joint; Z79.82 Long term (current) use of aspirin; Z96.652 Presence of left artificial knee joint
CPT/HCPCS: 36415; 70450; 70496; 70498; 70551; 71045; 80048; 80061; 80076; 81001; 82962; 83036; 83735; 84100; 84443; 84484; 85025; 85610; 85670; 85730; 93005; 93010; 93306; 93971; 96365; 96372; 96375; 96376; 97161; 99291; A9270; G0378; J1650; J1953; J2060; J3475; Q9967

== ENCOUNTER 2020-07-22 09:20 | Emergency (ER) | payer MEDICARE ==
[2020-07-22] MEDS ORDERED: ASPIRIN 81 MG TAB CHEW PO ONE (10:49)
--- NOTE | 2020-07-22 10:52 | Emergency Department Report ---
ED Medical Clearance HPI - General Chief complaint: Medical Clearance Stated complaint: MED REFILL Time Seen by Provider: 07/22/20 10:38 Source: patient Mode of arrival: Ambulatory - History of Present Illness Initial comments: This is a pleasant 70-year-old female with a past medical history of epilepsy, congestive heart failure, hypertension, bipolar, anemia and asthma who presents the emergency department with chief complaint that she is out of her Dilantin that she takes 100 mg every 8 hours. She states her last dose was at 6:30 AM this morning and she will be out by this evening. She denies any missed doses. She states she was started on this medication 2 weeks ago when she started having seizures and was hospitalized. She is unable to see her neurologist for the next few months so was told to come to the emergency department to fill these medications. She has not had any seizures since she has been started on the Dilantin. She states she has had some discomfort in the lower chest since starting it. She denies any pain in her chest, shortness of breath, nausea, vomiting, diarrhea, fever, chills, night sweats, headache, dizziness, blurry vision, weakness or any other associated symptoms. Home medications: Home Medications Medication Instructions Recorded Confirmed Last Taken ALPRAZolam [Xanax TAB] 1 mg PO DAILY PRN 06/18/20 06/18/20 Unknown Atorvastatin Calcium [Lipitor] 40 mg PO DAILY 06/18/20 06/18/20 Unknown Hydroxyzine HCl [hydrOXYzine] 50 mg PO Q6H PRN 06/18/20 06/18/20 Unknown Potassium Chloride 10 meq PO DAILY 06/18/20 06/18/20 Unknown Previous Rx's Medication Instructions Recorded Last Taken Type Acetaminophen [Acetaminophen TAB] 650 mg PO Q4H PRN tablet 06/21/20 Unknown Rx Aspirin 325 mg PO QDAY #30 tablet 06/21/20 Unknown Rx AtorvaSTATin [Lipitor] 80 mg PO QHS #60 tablet 06/21/20 Unknown Rx Furosemide [Lasix TAB] 20 mg PO QDAY #30 tab 06/21/20 Unknown Rx Potassium Chloride [K-Dur] 10 meq PO QDAY tablet 06/21/20 Unknown Rx carvediloL [Coreg] 12.5 mg PO BID #60 tab 06/21/20 Unknown Rx Phenytoin [Dilantin] 100 mg PO Q8HR #90 capsule.er 07/22/20 Unknown Rx Allergies/Adverse reactions: Allergies Allergy/AdvReac Type Severity Reaction Status Date / Time levetiracetam [From [facility]era] Allergy Itching Verified 06/21/20 01:49 ED Review of Systems ROS: Stated complaint: MED REFILL Other details as noted in HPI Constitutional: denies: chills, fever Eyes: denies: eye pain, eye discharge, vision change ENT: denies: ear pain, throat pain Respiratory: denies: cough, shortness of breath, wheezing Cardiovascular: as per HPI, chest pain. denies: palpitations Endocrine: no symptoms reported Gastrointestinal: denies: abdominal pain, nausea, diarrhea Genitourinary: denies: urgency, dysuria, discharge Musculoskeletal: as per HPI. denies: back pain, joint swelling, arthralgia Skin: denies: rash, lesions Neurological: denies: headache, weakness, paresthesias Psychiatric: denies: anxiety, depression Hematological/Lymphatic: denies: easy bleeding, easy bruising ED Past Medical Hx - Past Medical History Previous Medical History?: Yes Hx Hypertension: Yes Hx CVA: No Hx Heart Attack/AMI: No Hx Congestive Heart Failure: Yes Hx Diabetes: No Hx Deep Vein Thrombosis: No Hx Pulmonary Embolism: No Hx GERD: No Hx Liver Disease: No Hx Renal Disease: No Hx Sickle Cell Disease: No Hx Arthritis: Yes Hx Headaches / Migraines: No Hx Seizures: Yes Hx Kidney Stones: No Hx Psychiatric Treatment: Yes (bipolar) Hx Asthma: Yes Hx COPD: No Hx Tuberculosis: No Hx Dementia: Yes Hx HIV: No Additional medical history: anemia - Surgical History Past Surgical History?: Yes Additional Surgical History: left KNEE replacement, right knee replacement - Social History Smoking Status: Never Smoker - Medications Home Medications: Home Medications Medication Instructions Recorded Confirmed Last Taken Type ALPRAZolam [Xanax TAB] 1 mg PO DAILY PRN 06/18/20 06/18/20 Unknown History Atorvastatin Calcium [Lipitor] 40 mg PO DAILY 06/18/20 06/18/20 Unknown History Hydroxyzine HCl [hydrOXYzine] 50 mg PO Q6H PRN 06/18/20 06/18/20 Unknown History Potassium Chloride 10 meq PO DAILY 06/18/20 06/18/20 Unknown History Acetaminophen [Acetaminophen TAB] 650 mg PO Q4H PRN tablet 06/21/20 Unknown Rx Aspirin 325 mg PO QDAY #30 tablet 06/21/20 Unknown Rx AtorvaSTATin [Lipitor] 80 mg PO QHS #60 tablet 06/21/20 Unknown Rx Furosemide [Lasix TAB] 20 mg PO QDAY #30 tab 06/21/20 Unknown Rx Potassium Chloride [K-Dur] 10 meq PO QDAY tablet 06/21/20 Unknown Rx carvediloL [Coreg] 12.5 mg PO BID #60 tab 06/21/20 Unknown Rx Phenytoin [Dilantin] 100 mg PO Q8HR #90 capsule.er 07/22/20 Unknown Rx ED Physical Exam - General Limitations: No Limitations General appearance: alert, in no apparent distress - Head Head exam: Present: atraumatic, normocephalic - Eye Eye exam: Present: normal appearance, PERRL, EOMI Pupils: Present: normal accommodation - ENT ENT exam: Present: normal exam, normal orophraynx, mucous membranes moist - Neck Neck exam: Present: normal inspection, full ROM. Absent: tenderness, meningismus - Respiratory Respiratory exam: Present: normal lung sounds bilaterally, chest wall tenderness. Absent: respiratory distress, wheezes, rales, rhonchi, stridor - Cardiovascular Cardiovascular Exam: Present: regular rate, normal rhythm, normal heart sounds. Absent: systolic murmur, diastolic murmur, rubs, gallop - GI/Abdominal GI/Abdominal exam: Present: soft, normal bowel sounds. Absent: distended, tenderness, guarding, rebound, rigid - Extremities Exam Extremities exam: Present: normal inspection, full ROM, normal capillary refill. Absent: tenderness, calf tenderness (No posterior calf tenderness, negative Homans' sign bilaterally) - Back Exam Back exam: Present: normal inspection, full ROM. Absent: tenderness, CVA tenderness (R), CVA tenderness (L) - Neurological Exam Neurological exam: Present: alert, oriented X3, CN II-XII intact, normal gait. Absent: motor sensory deficit - Psychiatric Psychiatric exam: Present: normal affect, normal mood - Skin Skin exam: Present: warm, dry, intact, normal color. Absent: rash ED Course Vital Signs 07/22/20 07/22/20 11:38 12:04 Temperature 98.3 F Pulse Rate 80 Respiratory 18 18 Rate Blood Pressure 113/80 [Left] O2 Sat by Pulse 98 98 Oximetry ED Medical Decision Making - Lab Data Result diagrams: 07/22/20 11:39 07/22/20 11:39 Lab Results 07/22/20 07/22/20 07/22/20 Range/Units 11:39 11:39 11:39 WBC 2.8 L (4.5-11.0) K/mm3 RBC 4.25 (3.65-5.03) M/mm3 Hgb 11.9 (10.1-14.3) gm/dl Hct 36.0 (30.3-42.9) % MCV 85 (79-97) fl MCH 28 (28-32) pg MCHC 33 (30-34) % RDW 14.3 (13.2-15.2) % Plt Count 179 (140-440) K/mm3 Lymph % (Auto) 34.0 (13.4-35.0) % [place] % (Auto) 7.9 H (0.0-7.3) % Eos % (Auto) 2.3 (0.0-4.3) % Baso % (Auto) 0.7 (0.0-1.8) % Lymph # (Auto) 0.9 L (1.2-5.4) K/mm3 [place] # (Auto) 0.2 (0.0-0.8) K/mm3 Eos # (Auto) 0.1 (0.0-0.4) K/mm3 Baso # (Auto) 0.0 (0.0-0.1) K/mm3 Seg Neutrophils % 55.1 (40.0-70.0) % Seg Neutrophils # 1.5 L (1.8-7.7) K/mm3 PT 14.7 (12.2-14.9) Sec. INR 1.14 H (0.87-1.13) APTT 25.2 (24.2-36.6) Sec. Sodium 137 (137-145) mmol/L Potassium 4.4 (3.6-5.0) mmol/L Chloride 102.0 (98-107) mmol/L Carbon Dioxide 27 (22-30) mmol/L Anion Gap 12 mmol/L BUN 14 (7-17) mg/dL Creatinine 0.9 (0.6-1.2) mg/dL Estimated GFR > 60 ml/min BUN/Creatinine Ratio 16 % Glucose 105 H (65-100) mg/dL Calcium 9.3 (8.4-10.2) mg/dL Total Bilirubin < 0.20 (0.1-1.2) mg/dL AST 79 H (5-40) units/L ALT 126 H (7-56) units/L Alkaline Phosphatase 123 (35-129) units/L Troponin T < 0.010 (0.00-0.029) ng/mL Total Protein 7.0 (6.3-8.2) g/dL Albumin 3.7 L (3.9-5) g/dL Albumin/Globulin Ratio 1.1 % 07/22/20 Range/Units 12:50 WBC (4.5-11.0) K/mm3 RBC (3.65-5.03) M/mm3 Hgb (10.1-14.3) gm/dl Hct (30.3-42.9) % MCV (79-97) fl MCH (28-32) pg MCHC (30-34) % RDW (13.2-15.2) % Plt Count (140-440) K/mm3 Lymph % (Auto) (13.4-35.0) % [place] % (Auto) (0.0-7.3) % Eos % (Auto) (0.0-4.3) % Baso % (Auto) (0.0-1.8) % Lymph # (Auto) (1.2-5.4) K/mm3 [place] # (Auto) (0.0-0.8) K/mm3 Eos # (Auto) (0.0-0.4) K/mm3 Baso # (Auto) (0.0-0.1) K/mm3 Seg Neutrophils % (40.0-70.0) % Seg Neutrophils # (1.8-7.7) K/mm3 PT (12.2-14.9) Sec. INR (0.87-1.13) APTT (24.2-36.6) Sec. Sodium (137-145) mmol/L Potassium (3.6-5.0) mmol/L Chloride (98-107) mmol/L Carbon Dioxide (22-30) mmol/L Anion Gap mmol/L BUN (7-17) mg/dL Creatinine (0.6-1.2) mg/dL Estimated GFR ml/min BUN/Creatinine Ratio % Glucose (65-100) mg/dL Calcium (8.4-10.2) mg/dL Total Bilirubin (0.1-1.2) mg/dL AST (5-40) units/L ALT (7-56) units/L Alkaline Phosphatase (35-129) units/L Troponin T < 0.010 (0.00-0.029) ng/mL Total Protein (6.3-8.2) g/dL Albumin (3.9-5) g/dL Albumin/Globulin Ratio % - EKG Data -: EKG Interpreted by Ne EKG shows normal: sinus rhythm Rate: normal - EKG Data Interpretation: normal EKG (Normal sinus rhythm with a ventricular rate of 72 bpm, T wave inversion in lead III, flattening of the T waves in aVF, no STEMI, normal axis, normal intervals) - Radiology Data Radiology results: report reviewed, image reviewed XRay Report Signed Patient: LUL JOYCE MR#: [id number] : 1950 Acct:[id number] Age/Sex: 70 / F ADM Date: 07/22/20 Loc: ED Attending Dr: Ordering Physician: KEEGAN VIDAL Date of Service: 07/22/20 Procedure(s): XR chest routine 2V Accession Number(s): [id number] cc: KEEGAN VIDAL Fluoro Time In Minutes: CHEST 2 VIEWS INDICATION / CLINICAL INFORMATION: chest pain. COMPARISON: Chest one view from 06/18/2020. FINDINGS: SUPPORT DEVICES: None. HEART / MEDIASTINUM: No significant abnormality. LUNGS / PLEURA: No significant pulmonary or pleural abnormality. No pneumothorax. ADDITIONAL FINDINGS: No significant additional findings. IMPRESSION: 1. No acute abnormality of the chest. Signer Name: Henri Allen MD Signed: 07/22/2020 11:32 AM Workstation Name: [id number] Transcribed By: JIN Dictated By: Henri Allen MD Electronically Authenticated By: Henri Allen MD Signed Date/Time: 07/22/20 1132 - Medical Decision Making Patient nontoxic in no acute distress. She presented the emergency department for medication refill of her Dilantin. She had no missed doses. She stated she did not have any chest pain but felt funny in her chest. Her labs were unrema rkable. Heart score was a 3. She had negative troponin x2. She has a low risk by Wells criteria for PE with no tachycardia or hypoxia making this unlikely. She was otherwise stable and in no acute distress. Vital signs are stable. Will refill her blood pressure medication. I did check some LFTs which were slightly elevated and educated her about this abnormal finding recommend she follow-up with her neurologist and primary care to determine if they want to switch her medication. Due to the fact that she has been doing so well on this medication I will not change at this time. She was instructed to return the [facility] department with any signs of pruritus or jaundice. She verbalized u nderstand the diagnosis, treatment plan and follow-up instructions and all her questions were answered. I did fax facesheet over to the cardiology group for an expedited outpatient follow-up - Differential Diagnosis ACS, PE, medication refill ED Disposition Clinical Impression: Nonspecific chest pain, Medication refill Disposition: DC-01 TO HOME OR SELFCARE Is pt being admited?: No Condition: Stable Instructions: Chest Pain (ED), Nonspecific Chest Pain, Adult Additional Instructions: As we discussed in the emergency department your liver function studies were slightly elevated which may be secondary to her seizure medication. Make sure you follow-up with your primary care doctor or neurologist as soon as possible. If you develop any changing or worsening symptoms such as yellowing of the sk in, itching skin, yellowing of the eyes, severe pain or fatigue need to return the emerge department immediately. Prescriptions: Phenytoin [Dilantin] 100 mg PO Q8HR #90 capsule.er Time of Disposition: 14:25
--- NOTE | 2020-07-22 11:37 | XRay Report ---
CHEST 2 VIEWS INDICATION / CLINICAL INFORMATION: chest pain. COMPARISON: Chest one view from 06/18/2020. FINDINGS: SUPPORT DEVICES: None. HEART / MEDIASTINUM: No significant abnormality. LUNGS / PLEURA: No significant pulmonary or pleural abnormality. No pneumothorax. ADDITIONAL FINDINGS: No significant additional findings. IMPRESSION: 1. No acute abnormality of the chest. Signer Name: Henri Allen MD Signed: 07/22/2020 11:32 AM Workstation Name: [id number]
[2020-07-22 12:21] LABS: Basophils % (Auto) 0.7 % (0.0-1.8); Eosinophils # (Auto) 0.1 K/mm3 (0.0-0.4); Eosinophils % (Auto) 2.3 % (0.0-4.3); Hemoglobin 11.9 gm/dl (10.1-14.3); Lymphocytes # (Auto) 0.9 K/mm3 (1.2-5.4); Mean Corpuscular HGB Conc 33 % (30-34); Mean Corpuscular Volume 85 fl (79-97); Monocytes # (Auto) 0.2 K/mm3 (0.0-0.8); Monocytes % (Auto) 7.9 % (0.0-7.3); Platelet Count 179 K/mm3 (140-440); Red Blood Count 4.25 M/mm3 (3.65-5.03); Red Cell Distribution Width 14.3 % (13.2-15.2)
[2020-07-22 12:28] LABS: INR 1.14 (0.87-1.13)
[2020-07-22 12:29] LABS: Partial Thromboplastin Time 25.2 Sec. (24.2-36.6)
[2020-07-22 12:45] LABS: Alanine Aminotransferase 126 units/L (7-56); Albumin 3.7 g/dL (3.9-5); BUN/Creatinine Ratio 16; Blood Urea Nitrogen 14 mg/dL (7-17); Calcium 9.3 mg/dL (8.4-10.2); Hemolysis Index 69
[2020-07-22 14:38] VITALS: BP 137/84
== END 2020-07-22 13:00 | disposition home or self-care (01) ==
LOC: ED 09:20
DX: R07.89 Other chest pain (principal); Z76.0 Encounter for issue of repeat prescription; Z88.1 Allergy status to other antibiotic agents
CPT/HCPCS: 36415; 71046; 80053; 84484; 85025; 85610; 85730; 93005

== ENCOUNTER 2020-08-24 21:17 | Emergency (ER) | payer MEDICARE ==
--- NOTE | 2020-08-24 21:59 | Emergency Department Report ---
HPI - General Time Seen by Provider: 08/24/20 21:48 - HPI HPI: Room 20 The patient is a 70-year-old female present with a chief complaint of seizure. EMS was called to the patient's home by family after the patient was witnessed having a seizure. Upon EMS arrival they state the patient was found unresponsive with twitching in the right face and right upper extremity. Patie nt was administered Versed 10 mg IM by EMS prior to arrival. Just before arriving at the ED the patient slowly began coming around and answering some questions. In the ED the patient is alert and denies complaints. When asked when her last seizure before today occurred the patient replies "it has been a while." Patient currently denies complaints. Patient states she has been compliant with her Dilantin ED Past Medical Hx - Past Medical History Hx Hypertension: Yes Hx Congestive Heart Failure: Yes Hx Arthritis: Yes Hx Seizures: Yes Hx Psychiatric Treatment: Yes (bipolar) Hx Asthma: Yes Hx Dementia: Yes Additional medical history: anemia - Surgical History Additional Surgical History: left KNEE replacement, right knee replacement - Family History Family history: no significant - Social History Smoking Status: Unknown if ever smoked Substance Use Type: None - Medications Home Medications: Home Medications Medication Instructions Recorded Confirmed Last Taken Type ALPRAZolam [Xanax TAB] 1 mg PO DAILY PRN 06/18/20 06/18/20 Unknown History Atorvastatin Calcium [Lipitor] 40 mg PO DAILY 06/18/20 06/18/20 Unknown History Hydroxyzine HCl [hydrOXYzine] 50 mg PO Q6H PRN 06/18/20 06/18/20 Unknown History Potassium Chloride 10 meq PO DAILY 06/18/20 06/18/20 Unknown History Acetaminophen [Acetaminophen TAB] 650 mg PO Q4H PRN tablet 06/21/20 Unknown Rx Aspirin 325 mg PO QDAY #30 tablet 06/21/20 Unknown Rx AtorvaSTATin [Lipitor] 80 mg PO QHS #60 tablet 06/21/20 Unknown Rx Furosemide [Lasix TAB] 20 mg PO QDAY #30 tab 06/21/20 Unknown Rx Potassium Chloride [K-Dur] 10 meq PO QDAY tablet 06/21/20 Unknown Rx carvediloL [Coreg] 12.5 mg PO BID #60 tab 06/21/20 Unknown Rx Phenytoin [Dilantin] 100 mg PO Q8HR #90 capsule.er 08/25/20 Unknown Rx ED Review of Systems ROS: Stated complaint: SEIZURE Other details as noted in HPI Constitutional: no symptoms reported Eyes: denies: eye pain ENT: denies: throat pain Respiratory: no symptoms reported Cardiovascular: denies: chest pain Endocrine: no symptoms reported Gastrointestinal: denies: abdominal pain Genitourinary: denies: dysuria Musculoskeletal: denies: back pain Neurological: other (Seizure). denies: headache Physical Exam - Physical Exam Physical Exam: GENERAL: The patient is well-developed well-nourished female lying on stretcher not appearing to be in acute distress. [] HEENT: Normocephalic. Atraumatic. Extraocular motions are intact. Patient has moist mucous membranes. NECK: Supple. Trachea midline CHEST/LUNGS: Clear to auscultation. There is no respiratory distress noted. HEART/CARDIOVASCULAR: Regular. There is no tachycardia. There is no gallop rub or murmur. ABDOMEN: Abdomen is soft, nontender. Patient has normal bowel sounds. There is no abdominal distention. SKIN: There is no rash. There is no edema. There is no diaphoresis. NEURO: The patient is awake and alert. The patient is cooperative. The patient has normal speech MUSCULOSKELETAL: There is no evidence of acute injury. ED Course - Reevaluation(s) Reevaluation #1: 08/24/20 22:47 Patient having a focal seizure which includes the right upper extremity and right lower extremity. Patient is able to answer questions during this episode. Patient will be given Ativan Reevaluation #2: 08/25/20 04:54 Patient resting comfortably. Patient currently denies complaints. Fosphenytoin has finished infusing ED Medical Decision Making - Lab Data Result diagrams: 08/24/20 22:28 08/24/20 22:28 Laboratory Tests 08/24/20 08/24/20 08/24/20 22:28 22:28 22:28 WBC 3.0 L RBC 4.00 Hgb 11.3 Hct 34.0 MCV 85 MCH 28 MCHC 33 RDW 15.6 H Plt Count 177 Lymph % (Auto) 40.4 H [place] % (Auto) 13.4 H Eos % (Auto) 2.0 Baso % (Auto) 0.9 Lymph # (Auto) 1.2 [place] # (Auto) 0.4 Eos # (Auto) 0.1 Baso # (Auto) 0.0 Seg Neutrophils % 43.3 Seg Neutrophils # 1.3 L Sodium 136 L Potassium 3.8 Chloride 101.5 Carbon Dioxide 25 Anion Gap 13 BUN 12 Creatinine 0.8 Estimated GFR > 60 BUN/Creatinine Ratio 15 Glucose 98 Calcium 9.5 Magnesium 1.70 Phenytoin 3.4 L - Differential Diagnosis Seizure Critical care attestation.: If time is entered above; I have spent that time in minutes in the direct care of this critically ill patient, excluding procedure time. ED Disposition Clinical Impression: Seizure Disposition: DC-01 TO HOME OR SELFCARE Is pt being admited?: No Does the pt Need Aspirin: No Condition: Stable Additional Instructions: Return to the emergency department should you develop worsening symptoms, inability to tolerate food or liquids, high fever or any other concerns Prescriptions: Phenytoin [Dilantin] 100 mg PO Q8HR #90 capsule.er Referrals: LIZZETTE RODRIGUEZ MD [Staff Physician] - 3-5 Days (Dr. Rodriguez is a neurologist. Please follow-up with him for further evaluation if you do not already have a neurol ogy) Time of Disposition: 04:57
[2020-08-24] MEDS ORDERED: LORazepam 2 MG/ML VIAL ONE (22:46)
[2020-08-24] MEDS ORDERED: LORazepam 2 MG/ML VIAL IV ONE (22:53)
[2020-08-24 23:01] LABS: Basophils % (Auto) 0.9 % (0.0-1.8); Eosinophils # (Auto) 0.1 K/mm3 (0.0-0.4); Hemoglobin 11.3 gm/dl (10.1-14.3); Lymphocytes # (Auto) 1.2 K/mm3 (1.2-5.4); Lymphocytes % (Auto) 40.4 % (13.4-35.0); Mean Corpuscular HGB Conc 33 % (30-34); Mean Corpuscular Volume 85 fl (79-97); Monocytes # (Auto) 0.4 K/mm3 (0.0-0.8); Monocytes % (Auto) 13.4 % (0.0-7.3); Platelet Count 177 K/mm3 (140-440); Red Cell Distribution Width 15.6 % (13.2-15.2)
[2020-08-24 23:03] LABS: BUN/Creatinine Ratio 15; Blood Urea Nitrogen 12 mg/dL (7-17); Calcium 9.5 mg/dL (8.4-10.2); Hemolysis Index 8
[2020-08-25] MEDS ORDERED: FOSPHENYTOIN 1,000 MG.PE in SODIUM CHLORIDE 0.9% 100 ML IV ONE (00:37)
[2020-08-25 05:08] VITALS: BP 135/76
== END 2020-08-25 06:18 | disposition home or self-care (01) ==
LOC: ED 21:17
DX: R56.9 Unspecified convulsions (principal); I11.0 Hypertensive heart disease with heart failure; I50.9 Heart failure, unspecified; M19.91 Primary osteoarthritis, unspecified site; F31.9 Bipolar disorder, unspecified; J45.909 Unspecified asthma, uncomplicated; F03.90 Unspecified dementia, unspecified severity, without behavioral disturbance, psychotic disturbance, mood disturbance, and anxiety; Z98.890 Other specified postprocedural states; Z79.899 Other long term (current) drug therapy; Z88.8 Allergy status to other drugs, medicaments and biological substances
CPT/HCPCS: 36415; 80048; 80185; 83735; 85025; 96365; 96375; 99283; J2060; Q2009

== ENCOUNTER 2022-05-18 10:30 | Inpatient (IN) | payer MEDICARE ==
[2022-05-18] MEDS ORDERED: IPRATROPIUM 0.02% NEBU 2.5 ML IH ONE (10:40)
[2022-05-18] MEDS ORDERED: ALBUTEROL 2.5 MG/3 ML NEBU IH ONE (10:40)
[2022-05-18] MEDS ORDERED: FUROSEMIDE 40 MG/4 ML INJ IV ONE (10:40)
[2022-05-18] MEDS ORDERED: NITROGLYCERIN DRIP 50 MG/250 ML BOTTLE IV SCH (11:00)
--- NOTE | 2022-05-18 11:13 | XRay Report ---
CHEST 1 VIEW 05/18/2022 10:56 AM INDICATION / CLINICAL INFORMATION: Dyspnea. COMPARISON: 07/22/2020 FINDINGS: SUPPORT DEVICES: None. HEART / MEDIASTINUM: There is new cardiomegaly LUNGS / PLEURA: Mild pulmonary venous congestion has developed. Trace pleural effusions are likely pr esent. No consolidation or pneumothorax. ADDITIONAL FINDINGS: No significant additional findings. IMPRESSION: 1. Mild CHF which appears to be new since 07/22/2020. Signer Name: Krzysztof Garcia Jr, MD Signed: 05/18/2022 11:09 AM Workstation Name: [id number]
[2022-05-18 12:02] LABS: ABG Base Excess -2.9 mmol/L (-2.0-3.0); ABG HCO3 22.5 mmol/L (20.0-26.0); ABG Methemoglobin 0.4 % (0.0-1.5); ABG Oxygen Saturation 95.7 % (95.0-99.0); ABG PCO2 41.6 mm Hg; ABG PH 7.35 pH Units (7.350-7.450); ABG PO2 79.8 mm Hg (80.0-90.0)
[2022-05-18 12:36] LABS: Creatine Kinase MB 1.6 ng/mL (0.0-4.0)
[2022-05-18 12:39] LABS: Alanine Aminotransferase 10 units/L (7-56); Albumin 3.9 g/dL (3.9-5); BUN/Creatinine Ratio 15; Blood Urea Nitrogen 15 mg/dL (7-17); Calcium 9.2 mg/dL (8.4-10.2); Hemolysis Index 10
[2022-05-18 12:40] LABS: INR 0.93 (0.87-1.13)
[2022-05-18 12:51] LABS: Mean Corpuscular HGB Conc 31 % (30-34); Mean Corpuscular Volume 90 fl (79-97); Platelet Count 174 K/mm3 (140-440); Red Blood Count 4.22 M/mm3 (3.65-5.03); Red Cell Distribution Width 14.1 % (13.2-15.2)
[2022-05-18 12:53] LABS: Hemoglobin 11.7 gm/dl (10.1-14.3)
[2022-05-18 12:54] LABS: Hematocrit 38.1 % (30.3-42.9)
[2022-05-18] MEDS ORDERED: oxyCODONE /ACETAMINOPHEN 5-325MG TAB PO PRN (13:20)
[2022-05-18] MEDS ORDERED: ONDANSETRON 4 MG/2 ML INJ IV PRN (13:20)
[2022-05-18] MEDS ORDERED: HYDROmorphone 0.5 MG/0.5 ML INJ IV PRN (13:20)
[2022-05-18] MEDS ORDERED: ACETAMINOPHEN 325 MG TAB PO PRN (13:20)
[2022-05-18] MEDS ORDERED: ALBUTEROL 2.5 MG/3 ML NEBU IH PRN (13:20)
--- NOTE | 2022-05-18 13:20 | History and Physical Report ---
History of Present Illness Chief complaint: I cannot breathe and I have pressure in my chest History of present illness: 71 YO Female with HTN, Vascular Dementia, Cerebral Atherosclerosis, CHF (Systolic EF 25%), OA, Bipolar, Seizure DO, Anemia, Obesity Hypoventilation Syndrome, HLD presents to ED for evaluation. Patient reports "I cannot breathe and I have pressure in my chest". Patient states that over the past week she has experienced shortness of breath, decreased exercise tolerance, dyspnea on exertion, dyspnea at rest, orthopnea, paroxysmal nocturnal dyspnea, lower extremity edema, and 10 pound weight gain. Patient also acknowledges decreased exercise tolerance. EMS was notified and upon arrival the patient was found to be in distress and subsequently transported to [facility] for further care and evaluati on of the aforementioned symptoms. The patient was seen and evaluated in the emergency department. All lab and imaging studies reviewed. Patient found to have a pulse oximetry of 87% on room air which is consistent with acute hypoxemic respiratory failure. Patient symptoms suspected secondary to CHF decompensation. Patient treated with high flow supplemental oxygen without improvement in symptoms. Patient subsequently placed on noninvasive positive pressure ventilation and given multiple doses of diuretic therapy with mild improvement in symptoms. Patient mated to telemetry and initiated on CHF protocol. Patient denies fever, chills, chest pain, productive cough, skin rash, recent contact, unilateral leg swelling, calf pain, prolonged travel/immobility, individual/family history of DVT/PE/bleeding/blood clotting disorders, known exposure to COVID-19. Prior admission on 06/20/2020 reviewed. All medication listed at time of admission has been reconciled. Advanced care planning conducted in ED. Past History Past Medical History: arthritis, heart failure, hypertension, hyperlipidemia, seizures, other (See HPI) Past Surgical History: total knee replacement, Other Social history: single. denies: smoking, alcohol abuse, prescription drug abuse Family history: diabetes, hypertension Medications and Allergies Allergies Allergy/AdvReac Type Severity Reaction Status Date / Time levetiracetam [From [facility]] Allergy Itching Verified 05/18/22 10:50 Home Medications Medication Instructions Recorded Confirmed Last Taken Type ALPRAZolam [Xanax TAB] 1 mg PO DAILY PRN 06/18/20 06/18/20 Unknown History Atorvastatin Calcium [Lipitor] 40 mg PO DAILY 06/18/20 06/18/20 Unknown History Hydroxyzine HCl [hydrOXYzine] 50 mg PO Q6H PRN 06/18/20 06/18/20 Unknown History Potassium Chloride 10 meq PO DAILY 06/18/20 06/18/20 Unknown History Acetaminophen [Acetaminophen TAB] 650 mg PO Q4H PRN tablet 06/21/20 Unknown Rx Aspirin 325 mg PO QDAY #30 tablet 06/21/20 Unknown Rx AtorvaSTATin [Lipitor] 80 mg PO QHS #60 tablet 06/21/20 Unknown Rx Furosemide [Lasix TAB] 20 mg PO QDAY #30 tab 06/21/20 Unknown Rx Potassium Chloride [K-Dur] 10 meq PO QDAY tablet 06/21/20 Unknown Rx carvediloL [Coreg] 12.5 mg PO BID #60 tab 06/21/20 Unknown Rx Phenytoin [Dilantin] 100 mg PO Q8HR #90 capsule.er 08/25/20 Unknown Rx Active Meds: Active Medications Nitroglycerin/Dextrose (Tridil Drip 50mg/250ml) 50 mg in 250 mls @ 3 mls/hr IV TITR ALVARO; Protocol Review of Systems Constitutional: weight gain, no weight loss, no fever, no chills Ears, nose, mouth and throat: no ear pain, no ear discharge, no nasal congestion, no nasal discharge Breasts: no change in shape, no swelling, no mass Cardiovascular: orthopnea, shortness of breath, dyspnea on exertion, paroxysmal nocturnal dyspnea, high blood pressure, leg edema, decreased exercise tolerance, no chest pain Respiratory: no cough, no cough with sputum, no excessive sputum, no hemoptysis Gastrointestinal: no abdominal pain, no nausea, no vomiting, no diarrhea, no constipation, no change in bowel habits Genitourinary Female: no pelvic pain, no flank pain, no dysuria, no urinary frequency, no urgency Rectal: no pain, no incontinence, no bleeding Musculoskeletal: no neck stiffness, no neck pain, no arm numbness/tingling, no low back pain, no shooting leg pain, no leg numbness/tingling Integumentary: no rash, no pruritis, no redness, no sores, no wounds Neurological: no head injury, no transient paralysis, no paralysis, no parathesias, no tingling, no tremors Psychiatric: no anxiety, no sleep disturbances, no insomnia, no hypersomnia, no change in appetite Endocrine: no cold intolerance, no heat intolerance, no polyphagia, no polydips ia, no polyuria Hematologic/Lymphatic: no easy bruising, no easy bleeding Allergic/Immunologic: no urticaria, no allergic rhinitis Exam - Constitutional Vitals: Temp Pulse Resp BP Pulse Ox 97.6 F 108 H 38 H 142/82 92 05/18/22 10:56 05/18/22 10:56 05/18/22 10:56 05/18/22 10:56 05/18/22 10:56 General appearance: Present: mild distress - EENT Eyes: Present: PERRL ENT: hearing intact, clear oral mucosa - Neck Neck: Present: supple, normal ROM, masses or JVD - Respiratory Respiratory effort: labored Respiratory: bilateral: diminished, rales - Cardiovascular Heart Sounds: Present: S1 & S2. Absent: rub, click - Extremities Extremities: pulses symmetrical Extremity abnormal: edema Peripheral Pulses: within normal limits - Abdominal General gastrointestinal: Present: soft, non-tender, non-distended, normal bowel sounds Female genitourinary: Present: normal - Integumentary Integumentary: Present: clear, warm, dry - Musculoskeletal Musculoskeletal: gait normal, strength equal bilaterally - Psychiatric Psychiatric: appropriate mood/affect, intact judgment & insight - Neurologic Neurologic: CNII-XII intact, moves all extremities HEART Score - HEART Score Troponin: Troponin T < 0.010 ng/mL (0.00-0.029) 05/18/22 11:47 Results - Labs CBC & Chem 7: 05/18/22 11:47 05/18/22 11:47 Labs: Abnormal lab results 05/18/22 05/18/22 05/18/22 Range/Units 11:15 11:47 11:47 ABG pO2 79.8 L (80.0-90.0) mm Hg ABG Base Excess -2.9 L (-2.0-3.0) mmol/L ABG Hemoglobin 11.3 L (12.0-16.0) gm/dl Oxyhemoglobin 94.1 L (95.0-99.0) % Sodium 146 H (137-145) mmol/L Chloride 109.3 H (98-107) mmol/L Glucose 207 H (65-100) mg/dL Lactic Acid 2.70 H* (0.7-2.0) mmol/L Assessment and Plan - Patient Problems (1) CHF (congestive heart failure) Current Visit: Yes Status: Acute Qualifiers: Heart failure type: systolic Heart failure chronicity: acute on chronic Qualified Code(s): I50.23 - Acute on chronic systolic (congestive) heart failure Plan to address problem: Strict I's/O, monitoring output every shift, daily weight, afterload reduction, blood pressure control, diuretic therapy, BNP, thyroid panel, magnesium level, afterload reduction, cardiology team consulted. Echocardiogram ordered and pending at time of admission. (2) Acute hypoxemic respiratory failure Current Visit: Yes Status: Acute Plan to address problem: Chest x-ray, supplemental oxygen, pulse oximetry, noninvasive positive pressure ventilation, as clinically indicated. Supportive care, early ambulation. (3) Accelerated hypertension Current Visit: Yes Status: Acute Plan to address problem: Monitor blood pressure every shift, continue medical management. Blood pressure monitoring as per nursing care protocol. (4) Hyperlipidemia Current Visit: Yes Status: Acute Qualifiers: Hyperlipidemia type: mixed hyperlipidemia Qualified Code(s): E78.2 - Mixed hyperlipidemia Plan to address problem: Low-cholesterol diet, statin therapy, supportive care. (5) Seizure disorder Current Visit: Yes Status: Acute Plan to address problem: Continue antiepileptic therapy, supportive care. No seizure activity at this time. (6) Bipolar disorder Current Visit: Yes Status: Acute Qualifiers: Current episode severity: unspecified Plan to address problem: Continue medical management. Continue to monitor. No acute exacerbation at this time. Outpatient psychiatry follow-up. (7) Vascular dementia Current Visit: Yes Status: Acute (8) Cerebral atherosclerosis Current Visit: Yes Status: Acute Plan to address problem: Verbal prompting, verbal redirection, benzodiazepine therapy as clinically indicated. (9) Obesity hypoventilation syndrome Current Visit: Yes Status: Acute Plan to address problem: Balanced diet, increase physical activity discharge, outpatient pulmonary follow -up for sleep study. (10) DVT prophylaxis Current Visit: Yes Status: Acute Plan to address problem: SCD to bilateral lower extremities while in bed (11) Advance care planning Current Visit: Yes Status: Acute Plan to address problem: Disease education conducted, care plan discussed, diagnoses discussed, prognosis discussed, patient is full code. Patient knowledges understanding and agreement with care plan, +30 minutes. (12) Preventative health care Current Visit: Yes Status: Acute Plan to address problem: Patient counseled regarding risk factor reduction, low-cholesterol diet, weight reduction, meal planning, outpatient follow-up with primary care physician for all age and risk factor appropriate screening test. +30 minutes.
[2022-05-18] MEDS ORDERED: NON-FORMULARY EACH (Hydroxyzine Hcl [Hydroxyzine] 50 MG Tablet) PO PRN (13:28)
--- NOTE | 2022-05-18 13:33 | Emergency Department Report ---
ED Shortness of Breath HPI - General Chief Complaint: Dyspnea/Respdistress Stated Complaint: ATILIO/CHEST PAIN Time Seen by Provider: 05/18/22 10:39 Source: EMS Mode of arrival: Stretcher Limitations: No Limitations - History of Present Illness Initial Comments: 71 years old with history of CHF , afib and HTN here today for DIFFICULTY BREATHING WITH CHEST PAIN. PATIENT ON NRB AT 15L. Complaint: shortness of breath -: Gradual, hour(s) Consistency: constant Improves With: oxygen, rest Worsens With: lying flat, exertion Known History Of: congestive heart failure Associated Symptoms: cough Treatments Prior to Arrival: oxygen, bronchodilator - Related Data Home Oxygen Therapy: No Home Medications Medication Instructions Recorded Confirmed Last Taken ALPRAZolam [Xanax TAB] 1 mg PO DAILY PRN 06/18/20 06/18/20 Unknown Atorvastatin Calcium [Lipitor] 40 mg PO DAILY 06/18/20 06/18/20 Unknown Hydroxyzine HCl [hydrOXYzine] 50 mg PO Q6H PRN 06/18/20 06/18/20 Unknown Potassium Chloride 10 meq PO DAILY 06/18/20 06/18/20 Unknown Previous Rx's Medication Instructions Recorded Last Taken Type Acetaminophen [Acetaminophen TAB] 650 mg PO Q4H PRN tablet 06/21/20 Unknown Rx Aspirin 325 mg PO QDAY #30 tablet 06/21/20 Unknown Rx AtorvaSTATin [Lipitor] 80 mg PO QHS #60 tablet 06/21/20 Unknown Rx Furosemide [Lasix TAB] 20 mg PO QDAY #30 tab 06/21/20 Unknown Rx Potassium Chloride [K-Dur] 10 meq PO QDAY tablet 06/21/20 Unknown Rx carvediloL [Coreg] 12.5 mg PO BID #60 tab 06/21/20 Unknown Rx Phenytoin [Dilantin] 100 mg PO Q8HR #90 capsule.er 08/25/20 Unknown Rx Allergies Allergy/AdvReac Type Severity Reaction Status Date / Time levetiracetam [From [facility]] Allergy Itching Verified 05/18/22 10:50 ED Review of Systems ROS: Stated complaint: ATILIO/CHEST PAIN Other details as noted in HPI Constitutional: denies: chills, fever Eyes: denies: eye pain, eye discharge, vision change ENT: denies: ear pain, throat pain Respiratory: denies: cough, shortness of breath, wheezing Cardiovascular: denies: chest pain, palpitations Endocrine: no symptoms reported Gastrointestinal: denies: abdominal pain, nausea, diarrhea Genitourinary: denies: urgency, dysuria, discharge Musculoskeletal: denies: back pain, joint swelling, arthralgia Skin: denies: rash, lesions Neurological: denies: headache, weakness, paresthesias Psychiatric: denies: anxiety, depression Hematological/Lymphatic: denies: easy bleeding, easy bruising ED Past Medical Hx - Past Medical History Hx Hypertension: Yes Hx Congestive Heart Failure: Yes Hx Arthritis: Yes Hx Seizures: Yes Hx Psychiatric Treatment: Yes (bipolar) Hx Asthma: Yes Hx Dementia: Yes Additional medical history: anemia - Surgical History Additional Surgical History: left KNEE replacement, right knee replacement - Social History Smoking Status: Never Smoker Substance Use Type: None - Medications Home Medications: Home Medications Medication Instructions Recorded Confirmed Last Taken Type ALPRAZolam [Xanax TAB] 1 mg PO DAILY PRN 06/18/20 06/18/20 Unknown History Atorvastatin Calcium [Lipitor] 40 mg PO DAILY 06/18/20 06/18/20 Unknown History Hydroxyzine HCl [hydrOXYzine] 50 mg PO Q6H PRN 06/18/20 06/18/20 Unknown History Potassium Chloride 10 meq PO DAILY 06/18/20 06/18/20 Unknown History Acetaminophen [Acetaminophen TAB] 650 mg PO Q4H PRN tablet 06/21/20 Unknown Rx Aspirin 325 mg PO QDAY #30 tablet 06/21/20 Unknown Rx AtorvaSTATin [Lipitor] 80 mg PO QHS #60 tablet 06/21/20 Unknown Rx Furosemide [Lasix TAB] 20 mg PO QDAY #30 tab 06/21/20 Unknown Rx Potassium Chloride [K-Dur] 10 meq PO QDAY tablet 06/21/20 Unknown Rx carvediloL [Coreg] 12.5 mg PO BID #60 tab 06/21/20 Unknown Rx Phenytoin [Dilantin] 100 mg PO Q8HR #90 capsule.er 08/25/20 Unknown Rx ED Physical Exam - General Limitations: No Limitations General appearance: alert, anxious, in distress - Head Head exam: Present: atraumatic, normocephalic - Eye Eye exam: Present: normal appearance - ENT ENT exam: Present: mucous membranes moist - Neck Neck exam: Present: normal inspection - Respiratory Respiratory exam: Present: wheezes, rales, rhonchi, accessory muscle use. Absent: respiratory distress - Cardiovascular Cardiovascular Exam: Present: normal rhythm, tachycardia. Absent: systolic murmur, diastolic murmur, rubs, gallop - GI/Abdominal GI/Abdominal exam: Present: soft, normal bowel sounds - Extremities Exam Extremities exam: Present: normal inspection - Back Exam Back exam: Present: normal inspection - Neurological Exam Neurological exam: Present: alert, oriented X3 - Psychiatric Psychiatric exam: Present: normal affect, normal mood - Skin Skin exam: Present: warm, dry, intact, normal color. Absent: rash ED Course Vital Signs 05/18/22 05/18/22 05/18/22 10:31 10:38 10:45 Temperature 98.0 F 97.5 F L Pulse Rate 150 H 104 H 110 H Respiratory 24 40 H 40 H Rate Blood Pressure 167/96 167/96 Blood Pressure 199/102 167/96 [Right] O2 Sat by Pulse 96 92 94 Oximetry 05/18/22 10:56 Temperature 97.6 F Pulse Rate 108 H Respiratory 38 H Rate Blood Pressure Blood Pressure 142/82 [Right] O2 Sat by Pulse 92 Oximetry ED Medical Decision Making - Lab Data Result diagrams: 05/18/22 11:47 05/18/22 11:47 - EKG Data -: EKG Interpreted by Me EKG shows normal: sinus rhythm Rate: tachycardia - EKG Data Interpretation: nonspecific ST-T wave jeremy - Radiology Data Radiology results: report reviewed, image reviewed - Medical Decision Making work p showed Pulmonary edemal lasix given started on bipap , rt given , imrpoved dramatically Critical care attestation.: If time is entered above; I have spent that time in minutes in the direct care of this critically ill patient, excluding procedure time. ED Disposition Clinical Impression: SOB (shortness of breath), CHF (congestive heart failure), Acute pulmonary edema Disposition: ADMITTED INPATIENT Is pt being admited?: Yes Does the pt Need Aspirin: No Condition: Stable Instructions: Pulmonary Edema (ED)
[2022-05-18] MEDS: PHENYTOIN 100 MG CAPSULE.ER PO SCH ×2 (16:23→22:20)
[2022-05-18] MEDS ORDERED: PNEUMOCOCCAL 23 Valent 0.5 ML VIAL IM ONE (18:08)
[2022-05-18] MEDS: FUROSEMIDE 20 MG/2 ML INJ IV SCH (18:35)
[2022-05-18 20:00] LABS: Free T4 (Free Thyroxine) 1.15 ng/dL (0.76-1.46)
[2022-05-18] MEDS: carvediloL 12.5 MG TAB PO SCH (22:20)
[2022-05-18] MEDS: hydrOXYzine HCL 25 MG TAB PO PRN (22:21)
[2022-05-18] MEDS: ALPRAZolam 1 MG TAB PO PRN (22:21)
[2022-05-19] MEDS: FUROSEMIDE 20 MG/2 ML INJ IV SCH ×2 (06:19→17:55)
[2022-05-19] MEDS: PHENYTOIN 100 MG CAPSULE.ER PO SCH ×3 (06:19→21:58)
[2022-05-19] MEDS: POTASSIUM CHLORIDE ER 10 MEQ TAB PO SCH (10:58)
[2022-05-19] MEDS: ASPIRIN 325 MG TAB PO SCH (10:58)
[2022-05-19] MEDS: carvediloL 12.5 MG TAB PO SCH ×2 (10:58→21:59)
[2022-05-19 11:39] LABS: Bacteria,Urine 1+ /HPF (Negative); Mucus,Urine FEW /HPF; WBC,Urine < 1.0 /HPF (0.0-6.0)
[2022-05-19 11:47] LABS: Amphetamine Screen,Urine PRESUMPTIVE NEGATIVE; Benzodiazepines Screen,Urine PRESUMPTIVE NEGATIVE; Cannabinoid Screen,Urine PRESUMPTIVE NEGATIVE; Cocaine Screen,Urine PRESUMPTIVE NEGATIVE; Methadone Screen,Urine PRESUMPTIVE NEGATIVE; Opiate Screen,Urine PRESUMPTIVE NEGATIVE
[2022-05-19 11:49] LABS: Color,Urine Yellow (Yellow)
--- NOTE | 2022-05-19 13:29 | Consultation ---
History of Present Illness Consult date: 05/19/22 Consult reason: congestive heart failure History of present illness: The patient is a 71-year-old woman with a longstanding history of dilated nonischemic cardiomyopathy and chronic systolic heart failure. She was first diagnosed in 2014, when a cardiac catheterization showed an ejection fraction of 10 to 20%, in the absence of significant coronary artery disease. She was placed on guideline directed medical therapy, but over the years was reported to be noncompliant. She now tells me that 2 to 3 years ago, she established outpatient care at [facility], where she says she sees a manager business management on a regular basis who maintains her medications. I asked her about any recommendations for primary ICD implant, but she is unaware of any such recommendation. She presents to the emergency room at this time with increasing shortness of breath, fatigue, was admitted and placed on diuretic therapy. She states that she feels much better following the regimen of intravenous diuretics. There is no chest pain, no palpitations, no history of syncope. EKG in the emergency room was sinus at 102, nonspecific intraventricular conduc tion delay, poor R wave progression but no acute ST or T wave changes of ischemia. Chest x-ray showed a mild severity cardiomegaly, with some right lower lobe streaking, possibly mild interstitial edema. Echocardiogram done on this presentation shows a persistent severe cardiomyopathy with ejection fraction currently estimated at 25%. Past History Past Medical History: arthritis, heart failure, hypertension, hyperlipidemia, seizures Past Surgical History: total knee replacement, Other Social history: single. denies: smoking, alcohol abuse, prescription drug abuse Family history: diabetes, hypertension Medications and Allergies Allergies Allergy/AdvReac Type Severity Reaction Status Date / Time levetiracetam [From [facility]] Allergy Itching Verified 05/18/22 10:50 Home Medications Medication Instructions Recorded Confirmed Last Taken Type Atorvastatin Calcium [Lipitor] 40 mg PO DAILY 06/18/20 05/19/22 Unknown History Potassium Chloride [K-Dur] 10 meq PO QDAY tablet 06/21/20 05/19/22 Unknown Rx Furosemide [Lasix TAB] 40 mg PO QDAY 05/19/22 05/19/22 Unknown History Ibuprofen [Motrin] 800 mg PO Q8HR PRN 05/19/22 05/19/22 Unknown History Lisinopril [Zestril TAB] 2.5 mg PO QDAY 05/19/22 05/19/22 Unknown History Memantine HCl 5 mg PO BID 05/19/22 05/19/22 Unknown History Quetiapine Fumarate [SEROquel] 300 mg PO HS 05/19/22 05/19/22 Unknown History Spironolactone [Aldactone] 25 mg PO QDAY 05/19/22 05/19/22 Unknown History carvediloL [Coreg] 25 mg PO BID 05/19/22 05/19/22 Unknown History donepeziL [Aricept] 10 mg PO HS 05/19/22 05/19/22 Unknown History levETIRAcetam [Keppra TAB] 750 mg PO DAILY 05/19/22 05/19/22 Unknown History Active Meds: Active Medications Acetaminophen (Acetaminophen 325 Mg Tab) 650 mg PO Q4H PRN PRN Reason: Pain MILD(1-3)/Fever >100.5/[place] Albuterol (Albuterol 2.5 Mg/3 Ml Nebu) 2.5 mg IH Q4HRT PRN PRN Reason: Shortness Of Breath Alprazolam (Alprazolam 1 Mg Tab) 1 mg PO DAILY PRN PRN Reason: Sleep Last Admin: 05/18/22 22:21 Dose: 1 mg Aspirin (Aspirin 325 Mg Tab) 325 mg PO QDAY [facility] Last Admin: 05/19/22 10:58 Dose: 325 mg Atorvastatin Calcium (Atorvastatin 40 Mg Tab) 80 mg PO QHS [facility] Last Admin: 05/18/22 22:20 Dose: 80 mg Carvedilol (Carvedilol 12.5 Mg Tab) 12.5 mg PO BID [facility] Last Admin: 05/19/22 10:58 Dose: 12.5 mg Furosemide (Furosemide 20 Mg/2 Ml Inj) 20 mg IV BID@0600,1800 [facility] Last Admin: 05/19/22 06:19 Dose: 20 mg Hydromorphone HCl (Hydromorphone 0.5 Mg/0.5 Ml Inj) 0.5 mg IV Q23H PRN PRN Reason: Pain , Severe (7-10) Hydroxyzine HCl (Hydroxyzine Hcl 25 Mg Tab) 50 mg PO Q6H PRN PRN Reason: Anxiety Last Admin: 05/18/22 22:21 Dose: 50 mg Ondansetron HCl (Ondansetron 4 Mg/2 Ml Inj) 4 mg IV Q8H PRN PRN Reason: Nausea And Vomiting Oxycodone/Acetaminophen (Oxycodone /Acetaminophen 5-325mg Tab) 1 tab PO Q16H PRN PRN Reason: Pain, Moderate (4-6) Phenytoin (Phenytoin 100 Mg Capsule.Er) 100 mg PO Q8HR [facility] Last Admin: 05/19/22 06:19 Dose: 100 mg Potassium Chloride (Potassium Chloride Er 10 Meq Tab) 10 meq PO QDAY [facility] Last Admin: 05/19/22 10:58 Dose: 10 meq Sodium Chloride (Sodium Chloride 0.9% 10 Ml Flush Syringe) 10 ml IV BID [facility] Last Admin: 05/19/22 10:58 Dose: 10 ml Sodium Chloride (Sodium Chloride 0.9% 10 Ml Flush Syringe) 10 ml IV PRN PRN PRN Reason: LINE FLUSH Review of Systems Cardiovascular: orthopnea, shortness of breath, no chest pain, no palpitations, no rapid/irregular heart beat, no edema, no syncope, no lightheadedness Physical Examination Vital Signs Temp Pulse Resp BP Pulse Ox 98.0 F 150 H 24 199/102 96 05/18/22 10:31 05/18/22 10:31 05/18/22 10:31 05/18/22 10:31 05/18/22 10:31 General appearance: no acute distress HEENT: Positive: PERRL Neck: Positive: neck supple Cardiac: Positive: Reg Rate and Rhythm Lungs: Positive: Decreased Breath Sounds Neuro: Positive: Grossly Intact Abdomen: Positive: Soft Female genitourinary: deferred Skin: Positive: Clear Extremities: Absent: edema Results 05/18/22 11:47 05/19/22 05:50 Comprehensive Metabolic Panel 05/19/22 Range/Units 05:50 Sodium 138 D (137-145) mmol/L Potassium 3.8 (3.6-5.0) mmol/L Chloride 102.3 (98-107) mmol/L Carbon Dioxide 23 (22-30) mmol/L BUN 20 H (7-17) mg/dL Creatinine 1.1 (0.6-1.2) mg/dL Glucose 115 H (65-100) mg/dL Calcium 9.0 (8.4-10.2) mg/dL EKG interpretations - Telemetry EKG Rhythm: Sinus Rhythm Assessment and Plan - Patient Problems (1) Acute on chronic systolic heart failure Current Visit: Yes Status: Acute Plan to address problem: 71-year-old woman with a longstanding nonischemic cardiomyopathy diagnosed since 2014, outpatient cardiac follow-up at [facility], admitted with acute exacerbation of chronic systolic heart failure. Patient's symptoms have improved with intravenous diuretic therapy. Echocardiogram shows ejection fraction at 25%, consistent with her historical levels. We will optimize guideline directed medical therapy, on discharge, patient is advised to follow-up with her doctors including her outpatient manager business management who monitor medication and dietary salt compliance, as well as advised on elective future therapies including device therapies.
--- NOTE | 2022-05-19 14:43 | Progress Note ---
Assessment and Plan (1) acute systolic CHF (congestive heart failure) exacerbation Current Visit: Yes Status: Acute Qualifiers: Heart failure type: systolic Heart failure chronicity: acute on chronic Qualified Code(s): I50.23 - Acute on chronic systolic (congestive) heart failure Plan to address problem: Strict I's/O, continue IV Lasix, monitoring output every shift, daily weight, afterload reduction, blood pressure control, diuretic therapy, BNP, thyroid panel, magnesium level, afterload reduction, cardiology team consulted. Echocardiogram ordered showed EF of 25% (2) Acute hypoxemic respiratory failure Current Visit: Yes Status: Acute Plan to address problem: Continue diuresis, supplemental oxygen, pulse oximetry, noninvasive positive pressure ventilation, as clinically indicated. Supportive care, early ambulation. (3) Accelerated hypertension Current Visit: Yes Status: Acute Plan to address problem: Monitor blood pressure every shift, continue medical management. Blood pressure monitoring as per nursing care protocol. (4) Hyperlipidemia Current Visit: Yes Status: Acute Qualifiers: Hyperlipidemia type: mixed hyperlipidemia Qualified Code(s): E78.2 - Mixed hyperlipidemia Plan to address problem: Low-cholesterol diet, statin therapy, supportive care. (5) Seizure disorder Current Visit: Yes Status: Acute Plan to address problem: Continue antiepileptic therapy, supportive care. No seizure activity at this time. (6) Bipolar disorder Current Visit: Yes Status: Acute Qualifiers: Current episode severity: unspecified Plan to address problem: Continue medical management. Continue to monitor. No acute exacerbation at this time. Outpatient psychiatry follow-up. (7) Vascular dementia Current Visit: Yes Status: Acute (8) Cerebral atherosclerosis Current Visit: Yes Status: Acute Plan to address problem: Verbal prompting, verbal redirection, benzodiazepine therapy as clinically indicated. (9) Obesity hypoventilation syndrome Current Visit: Yes Status: Acute Plan to address problem: Balanced diet, increase physical activity discharge, outpatient pulmonary follow-up for sleep study. (10) DVT prophylaxis Current Visit: Yes Status: Acute Plan to address problem: SCD to bilateral lower extremities while in bed (11) Advance care planning Current Visit: Yes Status: Acute Plan to address problem: Disease education conducted, care plan discussed, diagnoses discussed, prognosis discussed, patient is full code. Patient knowledges understanding and agreement with care plan, +30 minutes. (12) Preventative health care Current Visit: Yes Status: Acute Plan to address problem: Patient counseled regarding risk factor reduction, low-cholesterol diet, weight reduction, meal planning, outpatient follow-up with primary care physician for all age and risk factor appropriate screening test. +30 minutes. --2D echo showed EF of 25%, continue IV diuresis, monitor ins and outs and daily weight. If clinically improves possible DC in the morning Subjective Date of service: 05/19/22 Interval history: Patient seen and examined. Medical records and medication list reviewed. No acute event overnight noted by the RN. Patient complains of difficulty breathing on ambulation. Patient is tolerating diet. Discussed plan of care at bedside with patient. Objective - Exam Narrative Exam: GENERAL: well-developed obese -[place] female sitting on bed with nasal cannula HEENT: Normocephalic. Atraumatic. No conjunctival congestion or icterus. Patient has moist mucous membranes. NECK: Supple. Trachea midline. CHEST/LUNGS: Few crackles auscultated bilaterally HEART/CARDIOVASCULAR: Regular in rate and rhythm. S1 and S2 positive. ABDOMEN: Abdomen is soft, nontender. Patient has normal bowel sounds. SKIN: There is no rash. Warm and dry. NEURO: No focal motor deficit. Follows command. MUSCULOSKELETAL: No joint effusion or tenderness. EXTRIMITY: Trace edema, no cyanosis or clubbing. PSYCH: Cooperative. - Constitutional Vitals: Vital Signs - 12hr 05/19/22 05/19/22 05/19/22 04:29 06:00 08:06 Temperature 97.6 F 97.9 F Pulse Rate 77 86 Respiratory 16 18 18 Rate Blood Pressure 118/66 156/96 Blood Pressure [Right] O2 Sat by Pulse 96 96 100 Oximetry 05/19/22 05/19/22 05/19/22 08:58 09:23 12:10 Temperature 98.2 F Pulse Rate 86 Respiratory 18 Rate Blood Pressure Blood Pressure 130/72 [Right] O2 Sat by Pulse 100 100 100 Oximetry - Labs CBC & Chem 7: 05/18/22 11:47 05/19/22 05:50 Labs: Abnormal lab results 05/18/22 05/19/22 Range/Units 22:47 05:50 BUN 20 H (7-17) mg/dL Glucose 115 H (65-100) mg/dL Lactic Acid 2.10 H* (0.7-2.0) mmol/L HEART Score - HEART Score Troponin: Troponin T < 0.010 ng/mL (0.00-0.029) 05/18/22 11:47
[2022-05-19] MEDS: hydrOXYzine HCL 25 MG TAB PO PRN (21:59)
[2022-05-19] MEDS: ALPRAZolam 1 MG TAB PO PRN (21:59)
[2022-05-20] MEDS: PHENYTOIN 100 MG CAPSULE.ER PO SCH ×2 (06:04→13:04)
[2022-05-20] MEDS: FUROSEMIDE 20 MG/2 ML INJ IV SCH (06:06)
--- NOTE | 2022-05-20 09:38 | Electrocardiograph Report ---
[facility] Test Date: 2022-05-18 Test Time: 10:55:28 Pat Name: LUL JOYCE Department: Room: A460 1 Gender: F Verifying Specialist: [id number] : [id number] Requested By: DWAINE POWER Order Number: [id number] Reading MD: Peter White Measurements Intervals [place] Rate: 102 P: 45 NH: 136 QRS: 20 QRSD: 81 T: 148 QT: 341 QTc: 445 Interpretive Statements Sinus tachycardia Nonspecific T abnormalities, lateral leads No previous ECG available for comparison Electronically Signed On 05-20-2022 9:37:33 EDT by Peter White
[2022-05-20] MEDS: carvediloL 12.5 MG TAB PO SCH (10:45)
[2022-05-20] MEDS: ASPIRIN 325 MG TAB PO SCH (10:45)
[2022-05-20] MEDS: POTASSIUM CHLORIDE ER 10 MEQ TAB PO SCH (10:45)
[2022-05-20 12:49] VITALS: BP 126/68
[2022-05-20] MEDS ORDERED: levETIRAcetam 500 MG/5 ML ORAL LIQD PO SCH (14:00)
--- NOTE | 2022-05-20 14:31 | Progress Note ---
Assessment and Plan - Patient Problems (1) Acute on chronic systolic heart failure Current Visit: Yes Status: Acute Plan to address problem: 71-year-old woman with a longstanding nonischemic cardiomyopathy diagnosed since 2014, outpatient cardiac follow-up at [facility], admitted with acute exacerbation of chronic systolic heart failure. Patient's symptoms have improved with intravenous diuretic therapy. Echocardiogram shows ejection fraction at 25%, consistent with her historical levels. We will optimize guideline directed medical therapy, on discharge, patient is advised to follow-up with her doctors including her outpatient employee relations representative who will monitor medication and dietary salt compliance, as well as advise on elective future therapies including device therapies. Subjective Date of service: 05/20/22 Principal diagnosis: Acute on chronic systolic heart failure Interval history: Patient looks and feels better, shortness of breath and edema have resolved. Objective Vital Signs Temp Pulse Pulse Resp BP Pulse Ox 05/20/22 11:27 97.8 F 65 18 126/68 96 05/20/22 09:28 18 96 05/20/22 08:51 99 05/20/22 07:51 98.0 F 19 137/73 05/20/22 03:46 97.7 F 95 H 18 99/55 100 05/20/22 03:00 18 96 05/19/22 23:55 98.1 F 81 18 125/72 99 05/19/22 23:00 79 05/19/22 22:00 99 05/19/22 21:59 73 124/74 05/19/22 19:49 98.2 F 20 124/74 05/19/22 16:47 97.9 F 18 138/84 05/19/22 15:52 73 18 95 05/19/22 15:00 109 H - Physical Examination General: No Apparent Distress HEENT: Positive: PERRL Neck: Positive: neck supple Cardiac: Positive: Reg Rate and Rhythm Lungs: Positive: clear to auscultation Neuro: Positive: Grossly Intact Abdomen: Positive: Soft Skin: Positive: Clear Extremities: Absent: edema
--- NOTE | 2022-05-20 14:36 | Discharge Summary ---
Providers - Providers Date of Admission: 05/18/22 13:20 Date of discharge: 05/20/22 Attending physician: JEFF PINK 05/18/22 16:30 Consult to Cardiology [CONS] Routine Consulting Provider: CHEO CARDENAS Reason For Exam: chf 05/20/22 09:26 Physical Therapy Evaluation and Treat [CONS] Routine Comment: Reason For Exam: debility Primary care physician: ROLL ON MAN Hospitalization Condition: Stable Hospital course: 71-year-old woman with a longstanding nonischemic cardiomyopathy diagnosed since 2014, outpatient cardiac follow-up at [facility], admitted with acute exacerbation of chronic systolic heart failure. Patient's symptoms have improved with intravenous diuretic therapy. Echocardiogram shows ejection fraction at 25%, consistent with her historical levels. Patient was admitted to telemetry floor with scheduled iv diuretics. Monitored with serial CE, EKG. Cardiology consulted, 2d echo obtained. Provided cardiac diet, daily weights, monitored in's and O's. Patients symptom improved with medical management. Patient was then discharged home in stable condition with outpt f/u. Assessment and plan: (1) acute on chronic systolic CHF (congestive heart failure) Current Visit: Yes Status: Acute Qualifiers: Heart failure type: systolic Heart failure chronicity: acute on chronic Qualified Code(s): I50.23 - Acute on chronic systolic (congestive) heart failure Plan to address problem: Strict I's/O, continue IV Lasix, monitoring output every shift, daily weight, afterload reduction, blood pressure control, diuretic therapy, BNP, thyroid panel, magnesium level, afterload reduction, cardiology team consulted. Echocardiogram ordered showed EF of 25% (2) Acute hypoxemic respiratory failure Current Visit: Yes Status: Acute Plan to address problem: Continue diuresis, supplemental oxygen, pulse oximetry, noninvasive positive pressure ventilation, as clinically indicated. Supportive care, early ambulation. (3) Accelerated hypertension Current Visit: Yes Status: Acute Plan to address problem: Monitor blood pressure every shift, continue medical management. Blood pressure monitoring as per nursing care protocol. (4) Hyperlipidemia Current Visit: Yes Status: Acute Qualifiers: Hyperlipidemia type: mixed hyperlipidemia Qualified Code(s): E78.2 - Mixed hyperlipidemia Plan to address problem: Low-cholesterol diet, statin therapy, supportive care. (5) Seizure disorder Current Visit: Yes Status: Acute Plan to address problem: Continue antiepileptic therapy, supportive care. No seizure activity at this time. (6) Bipolar disorder Current Visit: Yes Status: Acute Qualifiers: Current episode severity: unspecified Plan to address problem: Continue medical management. Continue to monitor. No acute exacerbation at this time. Outpatient psychiatry follow-up. (7) Vascular dementia, continue Aricept Current Visit: Yes Status: Acute (8) Cerebral atherosclerosis Current Visit: Yes Status: Acute Plan to address problem: Low-fat diet, statin therapy (9) Obesity hypoventilation syndrome, need outpatient sleep study Current Visit: Yes Status: Acute Disposition: 01 HOME / SELF CARE / HOMELESS Time spent for discharge: 34 minutes Core Measure Documentation - Palliative Care Palliative Care/ Comfort Measures: Not Applicable - Core Measures Any of the following diagnoses?: heart failure - Heart Failure Discharge Requirements BRITTANY/ARB for LVSD if EF <40%: Yes Beta roland at discharge: Yes Exam - Physical Exam Narrative exam: GENERAL: well-developed obese -[place] female sitting on bed with nasal cannula HEENT: Normocephalic. Atraumatic. No conjunctival congestion or icterus. Patient has moist mucous membranes. NECK: Supple. Trachea midline. CHEST/LUNGS: no crackles auscultated bilaterally HEART/CARDIOVASCULAR: Regular in rate and rhythm. S1 and S2 positive. ABDOMEN: Abdomen is soft, nontender. Patient has normal bowel sounds. SKIN: There is no rash. Warm and dry. NEURO: No focal motor deficit. Follows command. MUSCULOSKELETAL: No joint effusion or tenderness. EXTRIMITY: no edema, no cyanosis or clubbing. PSYCH: Cooperative. - Constitutional Vitals: Temp Pulse Resp BP Pulse Ox 97.8 F 65 18 126/68 96 05/20/22 11:27 05/20/22 11:27 05/20/22 11:27 05/20/22 11:27 05/20/22 11:27 Plan Activity: advance as tolerated Weight Bearing Status: Weight Bear as Tolerated Diet: low salt Special Instructions: restrict fluid intake to (1.2L daily ) Follow up with: DEBRA GRACE MD [Primary Care Provider] - 7 Days PURNIMA CANO MD [Staff Physician] - 7 Days
== END 2022-05-20 17:43 | disposition home or self-care (01) | DRG 291 ==
LOC: ED 10:30 → 4A 13:20
PROVIDERS: ADMIT Internal Medicine; ATTEND Internal Medicine
PROC: 4A033R1 Measurement of Arterial Saturation, Peripheral, Percutaneous Approach (ICD-10-PCS; principal; 2022-05-18)
PROC: 5A09357 Assistance with Respiratory Ventilation, Less than 24 Consecutive Hours, Continuous Positive Airway Pressure (ICD-10-PCS; 2022-05-18)
DX: I11.0 Hypertensive heart disease with heart failure (principal); I50.23 Acute on chronic systolic (congestive) heart failure; J96.01 Acute respiratory failure with hypoxia; E66.2 Morbid (severe) obesity with alveolar hypoventilation; I42.8 Other cardiomyopathies; I48.91 Unspecified atrial fibrillation; F31.9 Bipolar disorder, unspecified; M19.90 Unspecified osteoarthritis, unspecified site; J45.909 Unspecified asthma, uncomplicated; Z96.653 Presence of artificial knee joint, bilateral; Z79.82 Long term (current) use of aspirin; F01.50 Vascular dementia, unspecified severity, without behavioral disturbance, psychotic disturbance, mood disturbance, and anxiety; I67.2 Cerebral atherosclerosis; G40.909 Epilepsy, unspecified, not intractable, without status epilepticus; Z83.3 Family history of diabetes mellitus; Z82.49 Family history of ischemic heart disease and other diseases of the circulatory system; E78.2 Mixed hyperlipidemia; Z68.35 Body mass index [BMI] 35.0-35.9, adult
CPT/HCPCS: 36415; 36600; 71045; 80048; 80053; 80307; 81001; 82140; 82550; 82553; 82803; 83690; 83735; 84439; 84443; 84484; 85025; 85610; 90732; 93005; 93306; 94760; 96374; 99285; G0378; J3490; Q0177; C8929; J1940